=== PATIENT | male | born 1950 | race Caucasian/White ===

== ENCOUNTER → 2016-08-08 | Outpatient (CLI) | payer BC ==
[~2016-08-08] MED LIST: ATEN50TA8 PO; ATOR-26 PO; HYDR25TA4 PO; LEVO50TA PO; LISI40TA PO; LOSA100T65 PO; MONT1TAB5 PO; OXYC-57 PO; OXYSR10 PO; PRCSR90 PO; SIMV80TA2 PO
[2016-08-08 12:21] LABS: ESTIMATED AVERAGE GLUCOSE 148 mg/dl; HA1C FLAG Normal (Normal)
[2016-08-08 12:52] LABS: RATIO 13.2 mcg/mg (0-30.0)
[2016-08-08 12:57] LABS: ALT/SGPT 26 U/L (12-78); BLOOD UREA NITROGEN 17 mg/dl (7-18); BUN/CREATININE RATIO 15.4 (10-20); CARBON DIOXIDE 30 mmol/L (21-32); CHLORIDE 103 mmol/L (98-107); CHOLESTEROL 158 mg/dl (0-200); GLUCOSE 120 mg/dl (70-99); POTASSIUM 3.4 mmol/L (3.5-5.1); SODIUM 141 mmol/L (136-145); TRIGLYCERIDES 152 mg/dl (0-150); VERY LOW DENSITY LIPOPROT CALC 30 mg/dl
[2016-08-08 13:08] LABS: ALB/GLOB RATIO 1.1 (0.9-2); ALKALINE PHOSPHATASE 61 U/L (45-117); AST/SGOT 17 U/L (15-37); CHOLESTEROL/HDL RATIO 3.6; HDL CHOLESTEROL 44 mg/dl; LDL CHOLESTEROL CALCULATED 84 mg/dl
[2016-08-08 13:11] LABS: CALCIUM 10.1 mg/dl (8.5-10.1)
== END | disposition home or self-care (01) ==
LOC: C.LABBFT 10:18
PROVIDERS: ATTEND Internal Medicine
DX: E11.9 Type 2 diabetes mellitus without complications (principal)

== ENCOUNTER → 2016-10-07 | Day surgery (SDC) | payer BC, OTHER ==
[2016-09-26 11:18] VITALS: Ht 170.2 cm; Wt 127.3 kg
[~2016-10-07] VITALS: Ht 170.2 cm; Wt 127.3 kg
[~2016-10-07] MED LIST changes: +FENTANYL CITRATE INJ 50 MCG/1 ML 2 ML VIAL ONE; +LIDOCAINE HCL 2% 2 ML VIAL (20MG/ML) ONE; -LISI40TA PO; -OXYC-57 PO; -OXYSR10 PO; -PRCSR90 PO; +PROPOFOL IV EMULSION 10 MG/ML 20 ML VIAL IV ONE; -SIMV80TA2 PO
[2016-10-07 10:43] VITALS: TEMP 36.6
--- NOTE | 2016-10-07 10:47 | Endo History and Physical ---
History & Physical Date of Service: Oct 07, 2016. Chief Complaint: screening Referring Physician: Dr. Sheehan History of Present Illness 66 yo CM who presents for screening colonoscopy. Past Surgical History Hx Cardiac Surgery: No Hx Internal Defibrillator: No Hx Pacemaker: No Hx Abdominal Surgery: No Hx of Implantable Prosthesis: No Hx Post-Op Nausea and Vomiting: No Hx Cancer Surgery: No Hx Thoracic Surgery: Yes (I&D RIB BONE) Hx Orthopedic: Yes (LT/RT TKA) Hx Urinary Tract Surgery: No Family History None Social History Smoking Status: Never Smoker Hx Substance Use: No Hx Alcohol Use: No Allergies Coded Allergies: Sulfa Drugs (Verified Allergy, Mild, RASH, NAUSEA, 10/07/16) Ketorolac Tromethamine (Verified Allergy, Unknown, EXTREME ITCHING, ) Oxycodone (Verified Allergy, Unknown, UNKNOWN REACTION, 09/26/16) Current Medications Reported Home Medications Medications Dose Route/Sig Max Daily Dose Days Date Category Synthroid (Levothyroxine Sodium) 50 Mcg Tab 50 Mcg PO QAM 09/26/16 Reported Cozaar (Losartan Potassium) 100 Mg Tab 100 Mg PO QAM 09/26/16 Reported Hctz (Hydrochlorothiazide) 25 Mg Tab 25 Mg PO QAM 09/26/16 Reported Lipitor (Atorvastatin Calcium) 80 Mg Tab 80 Mg PO QAM 09/26/16 Reported Montelukast Sodium 10 Mg Tab 1 Tab PO QAM 09/26/16 Reported Tenormin (Atenolol) 50 Mg Tab 50 Mg PO QAM 10/27/09 Reported Vital Signs Weight (Kilograms): 127.27 Height (Feet): 5 Height (Inches): 7 Date Time Temp Pulse Resp B/P (MAP) Pulse Ox O2 Delivery O2 Flow Rate FiO2 10/07/16 10:43 36.6 53 20 168/87 (114) 95 Room Air Physical Exam General Appearance: WD/WN, no apparent distress Respiratory/Chest: Auscultation: breath sounds normal Cardiovascular: Heart Auscultation: RRR Abdomen: Bowel Sounds: normal Inspection & Palpation: soft, non-distended, no tenderness, guarding & rebound Assessment and Plan Assessment: 66 yo CM who presents for screening colonoscopy. Plan: Proceed with colonoscopy.
--- NOTE | 2016-10-07 11:41 | GI REPORT ---
Procedure Date: 10/07/2016 10:59 AM Procedure: Colonoscopy Indications: Screening for colorectal malignant neoplasm Medicines: Monitored Anesthesia Care Complications: No immediate complications. Estimated Blood Loss: Estimated blood loss: none. Procedure: Pre-Anesthesia Assessment: - Prior to the procedure, a History and Physical was performed, and patient medications and allergies were reviewed. The patient's tolerance of previous anesthesia was also reviewed. The risks and benefits of the procedure and the sedation options and risks were discussed with the patient. All questions were answered, and informed consent was obtained. Prior Anticoagulants: The patient has taken no previous anticoagulant or antiplatelet agents. ASA Grade Assessment: III - A patient with severe systemic disease. After reviewing the risks and benefits, the patient was deemed in satisfactory condition to undergo the procedure. After I obtained informed consent, the scope was passed under direct vision. Throughout the procedure, the patient's blood pressure, pulse, and oxygen saturations were monitored continuously. The scope was introduced through the anus and advanced to the terminal ileum. The colonoscopy was performed without difficulty. The patient tolerated the procedure well. The quality of the bowel preparation was good. The terminal ileum, ileocecal valve, appendiceal orifice, and rectum were photographed. Findings: Multiple small-mouthed diverticula were found in the sigmoid colon. Non-bleeding internal hemorrhoids were found during retroflexion. The hemorrhoids were small. Impression: - Diverticulosis in the sigmoid colon. - Non-bleeding internal hemorrhoids. - No specimens collected. Recommendation: - Resume previous diet. - Continue present medications. - Repeat colonoscopy in 10 years for surveillance. - Return to primary care physician as previously scheduled. Placido Glass, DO 10/07/2016 11:40:33 AM This report has been signed electronically. Note Initiated On: 10/07/2016 10:59 AM I attest to the content of the Intraoperative Record and orders documented therein, exceptions below
--- NOTE | 2016-10-07 11:42 | Discharge Instructions ---
Endoscopy Patient Instructions Date / Procedure(s) Performed Oct 07, 2016. Colonoscopy Allergy Information Coded Allergies: Sulfa Drugs (Verified Allergy, Mild, RASH, NAUSEA, 10/07/16) Ketorolac Tromethamine (Verified Allergy, Unknown, EXTREME ITCHING, ) Oxycodone (Verified Allergy, Unknown, UNKNOWN REACTION, 09/26/16) Discharge Date / Findings Oct 07, 2016. Diverticulosis Internal hemorrhoids Medication Instructions OK to resume all medications today as prescribed Reported Home Medications Medications Dose Route/Sig Max Daily Dose Days Date Category Synthroid (Levothyroxine Sodium) 50 Mcg Tab 50 Mcg PO QAM 09/26/16 Reported Cozaar (Losartan Potassium) 100 Mg Tab 100 Mg PO QAM 09/26/16 Reported Hctz (Hydrochlorothiazide) 25 Mg Tab 25 Mg PO QAM 09/26/16 Reported Lipitor (Atorvastatin Calcium) 80 Mg Tab 80 Mg PO QAM 09/26/16 Reported Montelukast Sodium 10 Mg Tab 1 Tab PO QAM 09/26/16 Reported Tenormin (Atenolol) 50 Mg Tab 50 Mg PO QAM 10/27/09 Reported Provider Instructions Activity Restrictions - No exercising or heavy lifting for 24 hours. - Do not drink alcohol the day of the procedure. - Do not drive a car or operate machinery until the day after the procedure. - Do not make any important decisions or sign important papers in 24 hours after the procedure. Following Day: - Return to full activity which may include returning to work/school. Diet Start your diet with liquids and light foods (jello, soup, juice, toast). Then eat your usual diet if not nauseated. Treatment For Common After Affects For mild abdominal pain, bloating, or excessive gas: - Rest - Eat lightly - Lie on right side Follow-Up Information Follow-up with Dr. Sheehan as scheduled Anesthesia Information What You Should Know You have had a procedure that required some medicine to reduce anxiety and discomfort. This treatment is called moderate sedation. After receiving the treatment, you may be sleepy, but you will be able to breathe on your own. The effects of the treatment may last for several hours. Follow these instructions along with Activity/Diet recommendations noted above: * Do NOT do anything where dizziness or clumsiness would be dangerous. * Rest quietly at home today, then you can be up and about tomorrow. * Have a responsible person stay with you the rest of today. * You may have had an I.V. today. If so, you may take the dressing off later today. Recommendations Call your doctor if: * Trouble breathing * Continuous vomiting for more than 24 hours * Temperature above 101 degrees * Severe abdominal pain or bloating * Pain not relieved by pain medicine ordered * There is increased drainage or redness from any incision * A large amount of rectal bleeding greater than 2-3 tablespoons. (If you had a polyp/s removed or have hemorrhoids, a small amount of blood - from the rectum is to be expected.) * You have any unanswered questions or concerns. IN THE EVENT OF A SERIOUS EMERGENCY, GO TO THE NEAREST EMERGENCY ROOM Your discharge instructions were prepared by provider Placido Glass. Patient Instructions Signature Page Stephane Benton Patient (or Guardian) Signature/Date: I have read and understand the instructions given to me by my caregivers. Caregiver/RN/Doctor Signature/Date: The above-named patient and/or guardian has received patient instructions on this date. + Original Patient Signature Page (only) stays with chart. Please make copy for patient.
[2016-10-07 12:06] VITALS: BP 129/73; PULSE 47; O2SAT 96
--- NOTE | 2016-10-07 12:12 | Anesthesiology Progress Note ---
Anesthesia Post Op Note Date & Time Oct 07, 2016 at 12:11 Vital Signs Pain Intensity: 0 Vital Signs Past 12 Hours Date Time Temp Pulse Resp B/P (MAP) Pulse Ox O2 Delivery O2 Flow Rate FiO2 10/07/16 12:06 47 18 129/73 (91) 96 Room Air 10/07/16 11:51 50 18 117/66 (83) 94 Room Air 10/07/16 11:35 48 16 105/62 (76) 92 Room Air 10/07/16 10:43 36.6 53 20 168/87 (114) 95 Room Air Notes Mental Status: alert / awake / arousable, participated in evaluation Pt Amnestic to Procedure: Yes Nausea / Vomiting: adequately controlled Pain: adequately controlled Airway Patency, RR, SpO2: stable & adequate BP & HR: stable & adequate Hydration State: stable & adequate Anesthetic Complications: no major complications apparent
== END | disposition home or self-care (01) ==
LOC: C.GI 10:16
PROVIDERS: ATTEND Internal Medicine
DX: Z12.11 Encounter for screening for malignant neoplasm of colon (principal); K57.30 Diverticulosis of large intestine without perforation or abscess without bleeding; K64.8 Other hemorrhoids; J45.909 Unspecified asthma, uncomplicated; G47.33 Obstructive sleep apnea (adult) (pediatric); M19.90 Unspecified osteoarthritis, unspecified site; E11.9 Type 2 diabetes mellitus without complications; E03.9 Hypothyroidism, unspecified

== ENCOUNTER 2024-01-05 05:02 | Observation (INO) ==
--- NOTE | 2023-12-13 12:08 | PAT Medication Instructions ---
Medication Instructions Date of Service December 13, 2023 Home Medications Medication Instructions Recorded CPAP Supplies #1 ea 06/10/22 atenolol 25 mg tablet 25 mg PO QAM atorvastatin 80 mg tablet 80 mg PO QAM hydrochlorothiazide 25 mg tablet 25 mg PO QAM levothyroxine 50 mcg tablet 50 mcg PO QAM losartan 100 mg tablet 100 mg PO QAM montelukast 10 mg tablet (Singulair) 10 mg PO QAM naproxen sodium 220 mg tablet (Aleve) 220 mg PO Q8H PRN triamcinolone acetonide 0.1 % topical cream 1 applic topical BID PRN ASK your surgeon for instructions naproxen sodium 220 mg tablet (Aleve) 220 mg PO Q8H PRN STOP taking 24 hours before surgery triamcinolone acetonide 0.1 % topical cream 1 applic topical BID PRN DO NOT take the morning of surgery hydrochlorothiazide 25 mg tablet 25 mg PO QAM losartan 100 mg tablet 100 mg PO QAM Take morning of surgery With a small sip of water, OTHERWISE NOTHING TO EAT OR DRINK AFTER MIDNIGHT: atenolol 25 mg tablet 25 mg PO QAM atorvastatin 80 mg tablet 80 mg PO QAM levothyroxine 50 mcg tablet 50 mcg PO QAM montelukast 10 mg tablet (Singulair) 10 mg PO QAM Other Notes If you have any questions please call us at [phone] or [phone] or [phone] or [phone]
--- NOTE | 2023-12-21 10:22 | Anesthesiology Consultation ---
Date of Service December 21, 2023 Assessment & Plan (1) Encounter for pre-operative examination: - Check BSG AM DOS - Infectious disease screening: Per assessment on 12/21/23: No known recent infectious disease contacts or current infectious disease symptoms. - Outpatient joint assessment: Pt currently scheduled for inpatient pathway. If surgeon requests review for outpatient joint pathway, patient is not recommended candidate for outpatient joint program from anesthesia standpoint based on available information. - PCP visit (12/12/23): "..He is mildly uncontrolled with Hgb A1C at 7.3%, goal adjusted for age of 7.2. Appears doing well as last year had value of 8.0%. Weight is stable. c/w Rybelsus to 7mg. Only currently on 6mg because requires 3mg sample tablets x 2.. Consider switching Losartan to Olmesartan for microalbuminuria if present. UTD with diabetic eye exam. Foot exam performed today. Follow up in 6 months.. notes requires replacement, reviewed ortho note, notes will be on 01/04. Noted he had successful weight loss on Rybelsus which will add in his post operative recovery and lessen complications.. JULIENNE (obstructive sleep apnea).. following with sleep medicine, reviewed recent note.. Sensorineural hearing loss (SNHL) of both ears.. reviewed recent Audiology and ENT report. Notes doesn't want hearing aides. Continue with current plan, notes has had allergy referral and testing in the past.. eviewed echocardiogram form 2019 which showed concentric LVH with mild diastolic dysfunction of his LV, borderline biatrial dilatation, trace aortic regurg, mild mitral regurg, trace tricuspid regurg Continue with current optimized medical management.. Upper airway cough syndrome.. c/w montelukast" Chart Review Chart Review: Acceptable Risk for Surgery and Patient seen in Pre Admission Testing Teaching & Discussion Pre-Anesthesia Teaching/Discussion Notes: Instructed NPO after midnight before surgery,except medications with 15 cc of water. Medication instructions provided according to the PAT guidelines. History Surgery Operation Date: 01/05/24 10:40 Proposed Procedures p Left Total Hip Arthroplasty - Julito Banks MD Height/Weight Height: 5 ft 6.5 in Weight: 127.6 kg Allergies Allergy/AdvReac Type Severity Reaction Status Date / Time Sulfa (Sulfonamide Allergy Mild Rash, Verified 12/21/23 10:15 Antibiotics) nausea, itchy clindamycin Allergy Unknown Redness of Verified 12/13/23 11:31 Skin ketorolac Allergy Unknown Extreme Verified 12/21/23 10:15 itching oxycodone Allergy Unknown Unknown Verified 12/21/23 10:15 Medications Home Medications Medication Instructions Recorded Confirmed Last Taken CPAP Supplies #1 ea 06/10/22 12/12/23 Unknown atenolol 25 mg tablet 25 mg PO QAM 12/13/23 12/13/23 Unknown atorvastatin 80 mg tablet 80 mg PO QAM 12/13/23 12/13/23 Unknown hydrochlorothiazide 25 mg tablet 25 mg PO QAM 12/13/23 12/13/23 Unknown levothyroxine 50 mcg tablet 50 mcg PO QAM 12/13/23 12/13/23 Unknown losartan 100 mg tablet 100 mg PO QAM 12/13/23 12/13/23 Unknown montelukast 10 mg tablet 10 mg PO QAM 12/13/23 12/13/23 Unknown (Singulair) naproxen sodium 220 mg tablet 220 mg PO Q8H PRN prn 12/13/23 12/13/23 Unknown (Aleve) triamcinolone acetonide 0.1 % 1 applic topical BID PRN prn 12/13/23 12/13/23 Unknown topical cream semaglutide 3 mg tablet PO DIRECTED 12/21/23 Unknown Past Medical History Medical History Allergic rhinitis Arthritis Diabetes mellitus, type II Eczema History of bradycardia Hypercholesterolemia Hypertension Hypothyroidism Internal hemorrhoids LVH (left ventricular hypertrophy) Morbid obesity Nocturnal hypoxemia Per records Sensorineural hearing loss (SNHL) of both ears Per records Sleep apnea CPAP (compliant) Exercise / Class Metabolic Activity III < 4 Walking/Shop/Light housework Past Family History Family History Mother Bladder cancer Coronary heart disease Diabetes Hypertension Environmental allergies Heart disease Father Coronary heart disease Stroke Progressive supranuclear palsy Heart disease Other No family history of adverse response to anesthesia No family history of bleeding disorder Denies family history of Ovarian cancer Prostate cancer Breast cancer Colorectal cancer Past Surgical History Surgical History History of anesthesia reaction Awareness of surgery during one of his knee replacements History of bilateral knee replacement History of cataract surgery R/L History of surgery Fractured rib repair History of uvulectomy S/P total knee arthroplasty Right (2010) Left (2006) Past Anesthesia History No Family Hx of Anesthesia Complications and Other (Awareness with initial knee replacement, no issue with subsequent knee replacement) History of PONV No Hx of PONV and No Hx of Motion Sickness Social History Smoking Status: Never smoker Do You Dip or Chew Tobacco: No Hx Alcohol Use: No Hx Substance Use: No substance use type: does not use Review of Systems Patient denies chest pain, shortness of breath, fever, chills, cough, wheezing, palpitations. Physical Exam Vital Signs BP 180/82 > 178/67 P 52 TEMP 98.2 SP02 96%RA RESP 16 Physical Full cervical extension range of motion. Full TMJ range of motion. TMD 3 finger breaths Mallampati Score I Dentition: missing molar Lungs: clear throughout to auscultation Cardiac: regular rate and rhythm, no murmurs noted Spine: normal Carotid arteries: negative bruit Extremities: no LE edema Thick, short neck Lab Results Anesthesia Preop Results Results Anesthesia Widget: WBC 7.58 K/ul (4.8-10.8) 12/21/23 Hgb 16.0 g/dl (14.0-18.0) 12/21/23 Hct 47.2 % (42.0-52.0) 12/21/23 Plt 206 K/uL (130-400) 12/21/23 Na 138 mmol/L (136-145) 12/04/23 K 3.6 mmol/L (3.5-5.1) 12/04/23 Cl 101 mmol/L (98-107) 12/04/23 CO2 29 mmol/L (21-32) 12/04/23 BUN 18 mg/dl (6-23) 12/04/23 Creat 0.91 mg/dl (0.6-1.4) 12/04/23 Glucose Level 122 mg/dl (70-99(Fasting)) H 12/04/23 PT 11.1 Seconds (9.0-12.0) 12/21/23 PTT 27 Seconds (21-31) 12/21/23 INR 1.0 (0.9-1.1) 12/21/23 TSH 3.359 uIu/ml (0.300-4.500) 12/04/23 HA1c 7.3 % (4.5-5.6) H 12/04/23 Blood Type O Positive 12/21/23 Antibody Screen NEGATIVE 12/21/23 Testing Electrocardiogram Date: 12/21/23 Sinus bradycardia at [address] N[address]/T wave abnormality. Chest X-Ray Date: 12/21/23 FINDINGS: No lines and tubes are seen. The cardiomediastinal silhouette is normal. The lungs are clear. No evidence of pleural effusion or pneumothorax. IMPRESSION: No acute chest disease. Echocardiogram Date: 12/02/19 EF 55-60%. Mild concentric LVH. Grade 1 diastolic dysfunction. Borderline biatrial dilatation. Mild MR. Trace TR. Normal estimated right heart pressures. No regional wall motion abnormality. Pulmonary Function Test Date: 12/13/22 Nonspecific spirometry with no significant postbronchodilator response. Normal lung volumes and normal DLCO.
[2024-01-05] MEDS: ACETAMINOPHEN 500 MG TAB PO SCH ×2 (05:40→14:13)
[2024-01-05] MEDS: FAMOTIDINE 20 MG TAB PO SCH (05:42)
[2024-01-05] MEDS: CeleBREX 200 MG CAP PO SCH (05:42)
[2024-01-05] MEDS: METOCLOPRAMIDE HCL 10 MG TABLET PO SCH (05:42)
[2024-01-05] MEDS: LR 60ML/HR IV SCH (05:45)
[2024-01-05] MEDS ORDERED: fentaNYL citrate PF 100 MCG/2 ML VIAL ONE (06:04)
[2024-01-05] MEDS ORDERED: LIDOCAINE 2% 2 ML VIAL/AMP(20MG/ML) INFIL ONE (06:04)
[2024-01-05] MEDS ORDERED: PROPOFOL IV EMULSION 10 MG/ML 20 ML VIAL IV ONE (06:04)
[2024-01-05] MEDS ORDERED: DexMEDEtomidine HCL IV 100 MCG/ML VIAL IV ONE (06:05)
[2024-01-05] MEDS ORDERED: MIDAZOLAM HCL 1 MG/ML 2ML VIAL ONE (06:05)
[2024-01-05] MEDS: LR 500ML BOLUS, THEN 15ML/HR IV SCH (06:07)
[2024-01-05] MEDS ORDERED: BUPIVACAINE 0.5 % 5 MG/1 ML PF 10ML VIAL ONE (06:22)
[2024-01-05] MEDS ORDERED: MoRPHine SULFATE PF 1 MG/ML 10 ML AMP/VIAL ONE (06:34)
--- NOTE | 2024-01-05 06:38 | History & Physical Bridge Note ---
Date of Service January 05, 2024 History & Physical Bridge Note I have examined the patient, reviewed the History & Physical and in the interval since the performance of the History & Physical I have noted the following changes of clinical significance: no changes noted
[2024-01-05] MEDS: TRANEXAMIC ACID 1,000 MG **IV Pre-op IV SCH (06:51)
[2024-01-05] MEDS: ceFAZolin 3000MG 3,000 MG/72.5 ML BAG IV SCH (07:13)
[2024-01-05] MEDS ORDERED: HYDROmorphone INJ 2 MG/ML SYR/VIAL ONE (07:33)
[2024-01-05] MEDS ORDERED: ePHEDrine sulfate 50 MG/5 ML SYR ONE (07:36)
[2024-01-05] MEDS ORDERED: ROCURONIUM BROMIDE 10 MG/ML 5 ML VIAL IV ONE (07:56)
[2024-01-05] MEDS ORDERED: SUGAMMADEX SODIUM 200 MG/2 ML VIAL IV ONE ×2 (07:58→08:27)
[2024-01-05] MEDS: BUPIVACAINE/EPINEPHRINE 0.5% MPF 1:200,000 30 ML VIAL ONE (08:26)
[2024-01-05] MEDS ORDERED: ONDANSETRON INJ 2 MG/ML 2 ML VIAL ONE (08:26)
[2024-01-05] MEDS ORDERED: DEXAMETHASONE SOD INJ 4 MG/ML VIAL ONE (08:26)
[2024-01-05] MEDS ORDERED: HYDROmorphone INJ 2 MG/ML SYR/VIAL IV PRN (08:33)
[2024-01-05] MEDS ORDERED: ePHEDrine sulfate 50 MG/ML AMP IV PRN (08:33)
[2024-01-05] MEDS ORDERED: ATROPINE SULFATE 0.1 MG/ML 10ML SYR IV PRN (08:33)
[2024-01-05] MEDS ORDERED: PROMETHAZINE HCL 6.25 MG in SODIUM CHLORIDE 0.9% 50 ML IV PRN (08:33)
--- NOTE | 2024-01-05 09:00 | Operative Report ---
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 He had a moderate-sized hip joint effusion. Not much in the way of osteophyte formation. Specimens Left femoral head sent for pathology. Anesthesia Type General Complications none Disposition Accompanied Patient To Recovery: No Indications The patient is a 73-year-old gentleman was had a several year history of increasing left hip pain discomfort and stiffness gotten significant worse over the past year. He failed conservative measures. He elected proceed with left total hip arthroplasty. Description of Procedure Operative implants consists of: 1. Biomet G7 size 52 mm acetabular shell. 2. 6.5 cancellous acetabular screws 1 of 35 mm in length and 1 of 30 mm length. 3. [place] hole loan review analyst. 4. Highly cross-linked polyethylene liner with a 52 mm outer diam and 36 mm inner diameter. 5. DePuy [place] size 11 KLA femoral stem. 6. +5/36 mm ceramic articular ball. The patient was taken to the op room, identified, placed on the operative table in the supine position. All contact areas were appropriately padded. IV antibiotics were provided by the anesthesia team. A spinal anesthetic had been attempted in the holding area but unsuccessful. Therefore, a general anesthetic was implemented. The patient was then placed in the right lateral decubitus position. An axillary roll was placed. A stool Birkett position was used for positioning. Left hip and leg were then prepped and draped in usual sterile fashion. A posterolateral approach to the left hip was then performed to a curvilinear incision centered over the greater trochanter. Sharp dissection was got through subcutaneous tissue down to level the IT band gluteal fascia. The IT band gluteal fascia was sized longitudinally in line with skin incision. The underlying greater bursa was excised. He had a lot of fat in his posterior tissue area and I did have to excise some this in order to expose the posterior aspect of his hip. The piriformis and external rotators along with the posterior hip joint capsule then released as a single layer. The hip was internally rotated and dislocated. A femoral neck osteotomy cut was made with Final Cut about 12 mm above the lesser trochanter. Femoral head was removed and sent for pathology. The femur was retracted anteriorly. Attention was then drawn to the acetabulum. The acetabular labrum was excised. The pulmonary fat was excised. Sequential reaming the acetabular was then performed again with a size 45 and progressing up to a 51. I reamed a little bit with a 52 reamer and then placed a 52 mm Biomet G7 acetabular shell in about 40 degrees lateral opening and 20 degrees of anteversion. It was fixed with two 6.5 screws. A trial liner was placed. Attention drawn the femur. The proximal femur was entered with cookie-cutter followed by canal finder. I then broached beginning with size 8 and progressing up to 11. Get excellent fit 11. A calcar reamer was used smoothing off the calcar. I then trialed the hip and the +5 articular ball provided appropriate soft tissue tension, equal leg lengths, and was fully stable in full extension and external rotation and flexion to 90 degrees and internal rotation to over [address] We elect to place these implants. All trial implants were removed. An apex hole loan review analyst was placed. Highly cross-linked polyethylene liner was placed. A size 11 KLA femoral stem was impacted in position. +5/36 mm ceramic articular ball was placed. Hip was located and found to be stable. Attention drawn toward closing. Wound was irrigated with coconuts of pulsatile lavage solution. We did inject locally with 60 cc of half percent Marcaine with epinephrine. Patient did receive 1 g tranexamic acid as well. The posterior capsule and external rotators then repaired through drill holes in the posterior trochanter with #2 Tycron suture. The IT band gluteal fascia then closed in 1 PDS suture in a running fashion for subcutaneous tissues then closed with 2 layers of the deep layer #2 Vicryl suture and the superficial layer with 2-0 Dexon suture in a buried interrupted fashion. The skin was then closed with a skin angelina. The leg was then cleaned and dried. A Prevena VAC dressing was applied. The patient was then brought out of general anesthesia and transferred to the recovery room in stable condition. The patient tolerated the procedure well and there were no complications. Casper Brenner, my physician health education assistant, was present for the entire procedure. His assistance was essential and required for appropriate patient positioning, prepping and draping, surgical exposure, performing the technical details of the operation, placement the implants, closure of the wound, and placement of the sterile bandage. I attest to the content of the Intraoperative Record and any orders documented therein. Any exceptions are noted below.
[2024-01-05] MEDS ORDERED: MAGNESIUM HYDROXIDE SUSP 30 ML UDC PO PRN (10:11)
[2024-01-05] MEDS ORDERED: bisacodyL 10 MG SUPP PR PRN (10:11)
[2024-01-05] MEDS ORDERED: HYDROmorphone INJ 0.5 MG/0.5 ML SYR IV PRN (10:11)
[2024-01-05] MEDS ORDERED: TRIAMCINOLONE ACET 0.1% CR 15 GM TUBE TOP PRN (10:11)
[2024-01-05] MEDS ORDERED: NALOXONE HCL 0.4 MG/1 ML VIAL/CARP IV PRN (10:11)
[2024-01-05] MEDS ORDERED: SENNA 8.6 MG TAB PO SCH (10:11)
[2024-01-05] MEDS ORDERED: ALUMINUM/MAGNESIUM SUSP 30 ML UDC PO PRN (10:11)
[2024-01-05] MEDS ORDERED: NON-FORMULARY MEDICATION (Cpap Supplies misc) SCH (10:11)
[2024-01-05] MEDS ORDERED: PHARMACY GLYCEMIC MGMT CONSULT PRN (10:44)
[2024-01-05] MEDS: MULTIVITAMIN TAB PO SCH (10:57)
[2024-01-05] MEDS ORDERED: DEXTROSE 50% 50 ML SYRINGE IV PRN (10:57)
[2024-01-05] MEDS ORDERED: GLUCOSE 10 TAB/TUBE PO PRN (10:57)
[2024-01-05] MEDS ORDERED: GLUCAGON FOR INJ 1 MG VIAL SQ PRN (10:57)
[2024-01-05] MEDS ORDERED: GLUCOSE 40% GEL 15 GM TUBE PO PRN (10:57)
[2024-01-05] MEDS ORDERED: CARBOHYDRATES FOR HYPOGLYCEMIA PO PRN (10:57)
[2024-01-05] MEDS: ASPIRIN 81 MG ECTAB PO SCH (10:57)
[2024-01-05] MEDS: KETOROLAC TROMETHAMINE 15 MG/ML VIAL IV SCH (11:02)
[2024-01-05] MEDS: DOCUSATE SODIUM 100 MG CAP PO SCH (11:05)
[2024-01-05] MEDS: ATORVASTATIN 40 MG TAB PO SCH (11:29)
[2024-01-05] MEDS: LEVOTHYROXINE SODIUM 50 MCG TABLET PO SCH (11:29)
[2024-01-05] MEDS: MONTELUKAST SODIUM 10 MG TABLET PO SCH (11:29)
[2024-01-05] MEDS: ATENOLOL 25 MG TABLET PO SCH (11:29)
[2024-01-05] MEDS: LOSARTAN POTASSIUM 50 MG TAB PO SCH (11:39)
[2024-01-05] MEDS: hydroCHLOROthiazide 25 MG TAB PO SCH (11:39)
--- NOTE | 2024-01-05 11:49 | Pharmacy Report ---
Pharmacy Glycemic Short Note 2 - Date of Service January 05, 2024 - Glycemic Short BSG Results (Last 24 hours): 01/05/24 01/05/24 01/05/24 05:25 09:03 11:34 POC Glucose 129 H 187 H 194 H OUTPATIENT ANTIDIABETIC REGIMEN: * N/A but per last primary care visit noted pt getting samples of Rybelsus ASSESSMENT: 01/04: * Stephane Benton is a 73 yo M POD0 of DEX. PMH includes HTN, obesity, hypothyroidism and T2DM for which pharmacy was consulted for glycemic management for. * Preop BSG was 129 but rodríguez to 187 after surgery. Pt received one dose of IV dexamethasone 4 mg and has one more 10 mg dose ordered for tomorrow * Will order Lantus to help cover steroid induced hyperglycemia and will use a NovoLog stress level of 3 to help cover that as well. PLAN FOR INPATIENT GLYCEMIC CONTROL: * Hold outpatient oral diabetes medications * Basal insulin * Lantus 25 units SQ daily x2 doses * Bolus insulin * NovoLog per scale ACHS or Q6hrs while NPO * Goal Range: Low 110 mg/dL - High 140 mg/dL * Correction Factor: 15 mg/dL/unit * Nutritional / Prandial insulin per carb ratio of 1 unit per 5 grams CHO consumed
[2024-01-05] MEDS: LANTUS PER UNIT CHARGE SC SCH (12:15)
[2024-01-05] MEDS: INSULIN ASPART PER UNIT CHARGE SC SCH (12:15)
[2024-01-05] MEDS: ONDANSETRON INJ 2 MG/ML 2 ML VIAL IV PRN (12:49)
[2024-01-05 12:54] VITALS: RESP 18
--- NOTE | 2024-01-05 13:24 | XRay Report ---
EXAM: Radiographs of the Left Hip 2 Views INDICATION: Postoperative assessment. TECHNIQUE: Single view of the pelvis and crosstable lateral views left hip obtained. COMPARISON: 10/30/2023 FINDINGS: Limitations: None. Bones/joints: Satisfactory appearance of noncemented left total hip arthroplasty. No fracture or dislocation. Satisfactory appearance of left hip arthroplasty. Soft tissues: Expected postoperative gas and swelling along the proximal femur. IMPRESSION: No acute findings in the left hip. Electronically signed by Geetha Monteiro 01-05-2024 13:23 PM
[2024-01-05] MEDS: METOCLOPRAMIDE HCL INJ 5 MG/ML 2 ML VIAL IV PRN (13:28)
--- NOTE | 2024-01-05 14:58 | Anesthesiology Progress Note ---
Date of Service January 05, 2024 Anesthesia Post Procedure Vital Signs Vital Signs: Temp Pulse Pulse Resp BP Pulse Ox O2 Del Method 01/05/24 12:50 36.2 C L 58 L 18 159/79 H 93 Room Air 01/05/24 12:09 36.3 C L 57 L 16 158/80 H 92 Room Air 01/05/24 11:00 36.2 C L 60 16 151/77 H 97 Room Air 01/05/24 10:29 59 L 18 149/75 H 92 Room Air 01/05/24 10:00 Nasal Cannula, CPAP 01/05/24 10:00 36.3 C L 60 16 156/65 H 96 Nasal Cannula 01/05/24 09:40 66 12 150/73 H 93 Nasal Cannula 01/05/24 09:30 36.4 C L 70 18 159/85 H 94 Nasal Cannula 01/05/24 09:20 66 19 164/89 H 96 Oxymask 01/05/24 09:10 60 18 146/63 H 95 Oxymask 01/05/24 09:02 36.2 C L 68 17 140/75 86 L Room Air 01/05/24 05:29 Room Air 01/05/24 05:29 36.4 C L 54 L 20 217/116 H 96 Room Air O2 Flow Rate 01/05/24 12:50 01/05/24 12:09 01/05/24 11:00 01/05/24 10:29 01/05/24 10:00 2 01/05/24 10:00 2 01/05/24 09:40 2 01/05/24 09:30 2 01/05/24 09:20 5 01/05/24 09:10 5 01/05/24 09:02 01/05/24 05:29 01/05/24 05:29 Pain Intensity Left Hip: Pain Intensity: 2 Transfer of Care Handoff Completed per policy Notes Mental Status: alert / awake / arousable and participated in evaluation Nausea / Vomiting: adequately controlled Pain: adequately controlled Airway Patency, RR, SpO2: stable & adequate BP & HR: stable & adequate Hydration State: stable & adequate Anesthetic Complications: no major complications apparent and Pt Satisfied with anesthetic care
[2024-01-05] MEDS: TRANEXAMIC ACID / 0.7% NACL 1,000 MG/100 ML BAG IV SCH (15:46)
[2024-01-05] MEDS: traMADol HCL 50 MG TABLET PO PRN (15:46)
[2024-01-05] MEDS: ceFAZolin 2000MG 2,000 MG/15 ML SYR IV SCH (15:54)
[2024-01-05] MEDS: ASCORBIC ACID 500 MG TAB PO SCH (17:14)
[2024-01-05] MEDS: CHECK SCOPOLAMINE PATCH PLACEMENT SCH (17:18)
[2024-01-05] MEDS: SCOPOLAMINE 1 MG/72 HR TDSY PATCH TD ONE (17:18)
[2024-01-05] MEDS: SENNA 8.6 MG TAB PO SCH (21:21)
[2024-01-06 06:37] LABS: Basophils # (auto) 0.03 K/uL (0.00-0.20); Basophils % (auto) 0.3 %; Eosinophils % (auto) 0.9 %; Hematocrit (blood only) 41.7 % (42.0-52.0); Hemoglobin 14.5 g/dl (14.0-18.0); Immature Granulocytes # (auto) 0.05 K/uL (0.01-0.20); Immature Granulocytes % (auto) 0.4 %; Lymphocytes # (auto) 1.99 K/uL (1.20-3.40); Lymphocytes % (auto) 17.4 %; Mean Corpuscular Hemoglobin 30.7 pg (25.0-34.0); Mean Corpuscular Hgb Conc 34.8 g/dL (32.0-36.0); Mean Corpuscular Volume 88.2 fL (80.0-100.0); Mean Platelet Volume 10.5 fL (9.4-12.4); Monocytes # (auto) 1.56 K/uL (0.11-0.59); Monocytes % (auto) 13.6 %; Neutrophils # (auto) 7.72 K/uL (1.40-6.50); Neutrophils % (auto) 67.4 %; Platelet Count 177 K/uL (130-400); RDW Coefficient of Variation 13.7 % (11.5-14.5); Red Blood Count 4.73 M/uL (4.70-6.10); White Blood Count 11.45 K/ul (4.8-10.8)
[2024-01-06 06:52] LABS: BUN Creatinine Ratio 18.8 (10-20); Creatinine Clr Calc Pharmacy 82.9 ml/min; Potassium 3.6 mmol/L (3.5-5.1)
--- NOTE | 2024-01-06 06:53 | Orthopedic Progress Note ---
Date of Service January 06, 2024 Assessment & Plan (1) Status post left hip replacement: Plan: 73-year-old gentleman postop day 1 from left hip replacement doing pretty well. Pains controlled. Hips located. He is neurologically intact. The nausea seems to be improved. Plan: 1. DVT prophylaxis including thigh-high teds, SCDs, aspirin twice a day. 2. PT/OT. Weight-bear as tolerated. Left total hip protocol. 3. Pain control. Doing okay with current pain regimen. 4. Disposition. Plan to discharge to home with some home health if he does okay in therapy today. Admission and Anticipated Discharge Date Admission Date: January 05, 2024 Subjective 73-year-old gentleman postop day 1 from a left hip replacement. He is doing quite a bit better this morning. Pains controlled. The nausea seems to be improved. No chest pain or shortness of breath. Hoping to go home today. Physical Exam Physical Exam: Physical examination reveals a pleasant middle-age male. Is lying in bed pretty comfortably this morning. Examination left hip reveals a Prevena VAC dressing to be in place. His thigh is soft and supple. Leg lengths are equal. Hips located. He is neurologically intact. Respiratory: normal respiratory effort, lungs clear to auscultation Cardiovascular: RRR, no murmur, no edema Gastrointestinal (Abdomen): normal bowel sounds, soft, nontender, no hepatosplenomegaly Results & Data Vital Signs (Past 12 Hours) Vital Signs Temp Pulse Resp BP Pulse Ox O2 Del Method 01/06/24 03:29 36.3 C L 53 L 18 159/82 H 94 Room Air 01/05/24 22:38 36.3 C L 63 18 149/77 H 93 Room Air 01/05/24 19:21 36.4 C L 61 18 163/77 H 94 Room Air Laboratory Results Hemoglobin is 14.5. Hematocrit is 41.7. Electrolytes are pending.
[2024-01-06 07:18] VITALS: BP 172/85; PULSE 61; TEMP 97.5; O2SAT 92
[2024-01-06] MEDS: dexAMETHasone 10 MG in SYRINGE 0 ML IV SCH (08:19)
--- NOTE | 2024-01-10 14:46 | Discharge Summary ---
Date of Service January 10, 2024 Principal Diagnosis Same as "Discharge Diagnosis" noted below under Discharge Instructions. Discharge Data Procedures Performed Operation Date: 01/05/24 07:00 Actual Procedures p Left Total Hip Arthroplasty(Left) - Julito Banks MD Hospital Course (1) Status post left hip replacement: This is a 73 year old patient admitted on 01/05/24 and underwent total hip arthroplasty. He tolerated the procedure well and there were no complications. Transferred to the PACU post op and later to the orthopedic floor for further care. He was given ancef for antibiotic prophylaxis. He was also given DEEDEE stockings, SCDs, and aspirin for DVT prophylaxis. Hemoglobin, hematocrit, and vital signs were monitored during her hospital stay and remained stable. Did not require any blood transfusions. There were no complications during her hospital stay. By post op day #1 the patient was tolerating a diabetic diet, pain was reasonably controlled with oral pain medicine, and he was participating in physical therapy. On post op day #1 the patient was discharged home and set up with home health care. He was given printed discharge instructions including prescriptions for extra strength tylenol, aspirin, zofran, senokot, tramadol, and flomax. Continue hip precautions. Continue physical therapy, weight bearing as tolerated. Continue DEEDEE stockings. Follow up approximately 2 weeks post op or sooner if there are problems or concerns. Discharge Plan Discharge Items Patient Disposition: Home - Home Health Services Reason For Visit: Left Hip Osteoarthritis Discharge Diagnosis: Left Hip Replacement Activity: Per Instructions section Activity Comment: Follow/Obey hip precautions at all times Weightbearing: Full weightbearing Weightbearing Comment: Weightbear as tolerated obeying hip precautions at all times. Non-emergency contact: Surgeon Call non-emergency contact if: you have any medication questions Follow-up/Referrals: Tyree Jacob DO [Primary Care Provider] - Diet: Carb Consistent or DM2 Addtl Attending Provider Instructions: ACTIVITY RECOMMENDATIONS: Diet: * You may resume previous diet. Physical Therapy: * Aggressive physical therapy is not usually needed. You will learn to take care of yourself safely and walk. * Follow the "Hip Precautions Instructions." * In some cases, the social worker delinquency prevention at the hospital will arrange to have a therapist come to your house for the first couple of weeks to help you learn these skills. * You need to practice on your own or with the help of a family member as needed. * When you learn these skills, most of the therapy can be done on your own. Home Exercise: * You were shown a series of exercises in the hospital. Do these exercises three to four times each day including the exercises you were shown in physical therapy. Walking: * Get up and walk several times each day. For the first four weeks, try not to stand or walk for more than one hour at a time. If you do stand or walk for more than one hour, you will not hurt anything, but your leg will likely swell. * As you feel comfortable, you may change from the walker or crutches to a cane and then to independent walking. MEDICATIONS: New Medicine: * You will likely be taking one or more of these medicines: 1. Tramadol - Take, as directed, when you need it, every six hours to control your pain. 2. Aspirin - Thins your blood to lessen the chance of forming a blood clot. * The most common side effects of pain medicine and iron are nausea and constipation. If nausea or constipation is too much of a problem or if you have any questions about your new medicines or doses, call [facility] at . We will try to help you manage these issues. "VERY IMPORTANT TO READ AND REVIEW" Pain: * The immediate post-operative period after hip replacement surgery is often quite painful. * You are given a prescription for pain medicine. You should take it, as directed, when you need it, especially before physical therapy and before going to bed. Pain that interferes with sleep is very common and can last several months. * You will likely need pain medicine for the first two to four weeks. It will not stop all of the pain. The pain will lessen and as you feel better, you may change to milder pain medicine such as Tylenol. * The most common side effects of pain medicine are nausea and constipation, so don't take more than you need. SPECIAL CARE INSTRUCTIONS: TEDs/Elastic Stockings: * The white elastic stockings help limit swelling and prevent blood clots from forming in your legs. The more you wear them, the more they work. * Wear them for six weeks. Incision Site Care: * Remove dressing postoperative day 2 and then shower. Keep direct shower pressure off the incision site. * After showering, cover angelina with dry gauze and change daily or more frequently if the dressing is getting saturated with drainage. * May completely stop using bandage if wound is dry and no drainage * [place] are removed between 2 and 3 weeks post-op. If your follow-up appointment is made before 2 weeks, please have your appointment re- scheduled. It is too early to remove the angelina. Prevention of Infection: * Take antibiotics one hour before any dental cleaning, dental work, urological procedure, gastrointestinal procedure or any invasive surgery in order to prevent your new joint from getting infected. * You may get the antibiotics from the doctor performing the procedure or you may call our office at before and we will call in a prescription to the pharmacy of your choice. Things to Watch For: * Drainage from the incision site that occurs more than one week after your surgery. * Severely increased leg pain or swelling. * Increased redness at the incision site. * Fever above 102 degrees Fahrenheit. * Unusual chest pain or shortness of breath. * Unusual pain or burning with urination. Call [facility] at with any of the above problems or if you have any questions about your medicines or recovery. FOLLOW UP VISIT: Make an appointment to see your doctor for approximately two weeks after surgery for a progress check and staple removal by calling the office at . 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 aspirin [Earnestine Low Dose Aspirin] 81 mg tablet,delayed release (DR/EC) 81 mg PO BID 45 Days Qty: 90 0RF Rx Instructions: Take to prevent blood clots. tamsulosin [Flomax] 0.4 mg capsule 0.4 mg PO DAILY Qty: 7 0RF Rx Instructions: Begin night BEFORE surgery to prevent urinary retention hydrochlorothiazide 25 mg tablet 25 mg PO DAILY Qty: 90 3RF atorvastatin 80 mg tablet 80 mg PO QAM atenolol 25 mg tablet 25 mg PO QAM levothyroxine 50 mcg tablet 50 mcg PO QAM montelukast [Singulair] 10 mg tablet 10 mg PO QAM losartan 100 mg tablet 100 mg PO QAM triamcinolone acetonide 0.1 % cream 1 applic topical BID PRN (Reason: prn) Rx Instructions: apply to areas of rash semaglutide 3 mg Tablet PO DIRECTED Discontinued naproxen sodium [Aleve] 220 mg Tablet 220 mg PO Q8H PRN (Reason: prn) Admission Data Admit Date/Time: 01/05/24 08:54 Attending Provider: Julito Banks Admit Provider: Julito Banks Primary Care Provider: Tyree Jacob Other Interventions: Discharge Summary Assessment (RN) Last Done: 01/06/24 12:20
== END 2024-01-06 13:34 | disposition home health service (06) ==
LOC: ASU 05:02 → 3E 05:02
DX: M16.12 Unilateral primary osteoarthritis, left hip; Z88.1 Allergy status to other antibiotic agents; Z88.2 Allergy status to sulfonamides; Z88.8 Allergy status to other drugs, medicaments and biological substances; Z79.899 Other long term (current) drug therapy; Z88.5 Allergy status to narcotic agent; I10 Essential (primary) hypertension; Z79.890 Hormone replacement therapy; E11.9 Type 2 diabetes mellitus without complications; G47.33 Obstructive sleep apnea (adult) (pediatric)

== ENCOUNTER 2024-02-23 10:10 | Inpatient (IN) ==
--- NOTE | 2024-02-23 10:54 | Emergency Department Note ---
Impression & Plan Abscess of hip ADMIT ED Provider Note HPI: History obtained from patient. The patient is a 74-year-old gentleman who presents the emergency department with some swelling and redness around the surgical incision of his left hip where he had a hip replacement performed on January [address] Darren mcgregor at [facility]. Patient states he first noticed some redness and pain around the incision site about 2 weeks ago, he was placed on a course of Keflex without much improvement. Patient states he finished the Keflex yesterday and was seen in the clinic by Dr. Banks and they recommended that he continue taking it for another 10 days secondary to lack of improvement of the erythema and discomfort. Patient came to the emergency department today to be assessed as the area does not seem to be improving. Patient still has some redness around the incision and some pain. No purulent drainage was noted. On arrival here to the ED the patient is afebrile, he is hemodynamically stable and otherwise appears to be in no acute distress. ROS: - Per HPI Differential Diagnosis: Septic prosthetic joint, localized wound infection with cellulitis, abscess, necrotizing soft tissue infection, seroma, amongst other potential pathologies. *Outpatient medications and allergy history reviewed. PE: General: Alert HEENT: Normocephalic, trachea midline Eyes: Extraocular eye movement is intact, no scleral erythema Pulmonary: Clear to auscultation bilaterally, no wheezing Cardio: Regular rate and rhythm GI: Abdomen is soft to palpation : No suprapubic tenderness MSK: No evidence of trauma or malformation of the extremities, no edema Skin: Moderate erythema surrounding the surgical wound to the left hip with some tenderness and mild fluctuance to palpation near the central portion of the wound, there is no purulent drainage, otherwise no evidence of rash Neuro: Alert, no focal deficits Psychiatric: Cooperative INDEPENDENT INTERPRETATIONS: project coordinator: (As interpreted by myself): - An order was placed for continuous cardiac monitoring - Patient was noted to be in sinus rhythm with a rate of 60 Medical Decision Making: IV was established and lab work obtained, patient was placed on supervisor jewelry department. Lab work shows no leukocytosis, hemoglobin is stable at 12.1, platelet count is 513, CMP does not show any evidence of any critical findings, x-ray imaging of the left hip shows evidence of nonspecific gas formation, I discussed the patient's presentation with his orthopedic surgeon, Dr. Banks, and he requested that CT imaging of the hip be obtained for further evaluation for possible underlying fluid collection/abscess. CT imaging of the hip was obtained with IV contrast, this does show evidence of fluid collection suspicious for abscess measuring 16 cm[address] At this time Dr[address] Banks did admit the patient for drainage of the abscess and further care. Patient was placed for admission in stable condition. Consultants/Discussions held with other healthcare providers: -Orthopedic surgery, Dr. Banks Diagnosis: 1. Abscess of the left hip, acute Disposition: Admission Alejo Ayala DO Emergency Medicine Past Med/Surg History Problem List (Updated 02/23/24 @ 15:10 by Alejo Ayala DO) Abscess of hip (Acute) Left hip postoperative wound infection Status post left hip replacement Abnormal PFT Chronic rhinitis Medical History Encounter for pre-operative examination Morbid obesity Eczema History of bradycardia Nocturnal hypoxemia Per records Sensorineural hearing loss (SNHL) of both ears Per records Hypertension Hypercholesterolemia LVH (left ventricular hypertrophy) Hypothyroidism Arthritis Allergic rhinitis Sleep apnea CPAP (compliant) Diabetes mellitus, type II Internal hemorrhoids Surgical History History of anesthesia reaction Awareness of surgery during one of his knee replacements History of cataract surgery R/L History of bilateral knee replacement History of surgery Fractured rib repair History of uvulectomy S/P total knee arthroplasty Right (2010) Left (2006) Family History Mother Bladder cancer Coronary heart disease Diabetes Hypertension Environmental allergies Heart disease Father Coronary heart disease Stroke Progressive supranuclear palsy Heart disease Other No family history of adverse response to anesthesia No family history of bleeding disorder Denies family history of Ovarian cancer Prostate cancer Breast cancer Colorectal cancer Social History Smoking Status: Never smoker Second Hand Exposure: No; Do You Dip or Chew Tobacco: No; Hx Alcohol Use: No Hx Substance Use: No Preferred Language: Samoan Communication Ability: Effective Assembler Watch Train Required: No Beliefs That Will Affect Care: None marital status: Current Living Situation: Spouse current occupational status: retired Feels Safe at Home: Yes Childhood Exposure to Second-Hand Smoke: Yes Diet: regular caffeine: Yes Dental Care, Regularly: Yes Physical Activity Frequency: Daily Physical Activity Frequency Comment: walking Seatbelt Use: always Sunscreen Use: Yes Assistive Devices: CPAP, Raised Toilet Seat and Walker Allergies Allergies Allergy/AdvReac Type Severity Reaction Status Date / Time Sulfa (Sulfonamide Allergy Mild Rash, Verified 01/05/24 05:23 Antibiotics) nausea, itchy clindamycin Allergy Unknown Redness of Verified 01/05/24 05:23 Skin ketorolac Allergy Unknown Extreme Verified 01/05/24 05:23 itching oxycodone Allergy Unknown Unknown Verified 01/05/24 05:23 Home Meds Home Medications Medication Instructions Recorded Confirmed atenolol 25 mg tablet 25 mg PO QAM 12/13/23 02/23/24 levothyroxine 50 mcg tablet 50 mcg PO QAM 12/13/23 02/23/24 losartan 100 mg tablet 100 mg PO QAM 12/13/23 02/23/24 triamcinolone acetonide 0.1 % 1 applic topical BID PRN prn 12/13/23 02/23/24 topical cream acetaminophen 500 mg tablet 1,000 mg PO TID PRN pain 02/23/24 02/23/24 (Tylenol Extra Strength) sennosides 8.6 mg tablet (Senokot) 8.6 mg PO BID PRN prevent 02/23/24 02/23/24 constipation Previous Rx's Medication Instructions Recorded CPAP Supplies #1 ea 06/10/22 tramadol 50 mg tablet 50 - 100 mg (1 - 2 x 50 mg) PO Q6 01/03/24 PRN pain #40 tabs hydrochlorothiazide 25 mg tablet 25 mg PO DAILY #90 tabs 01/04/24 atorvastatin 80 mg tablet 80 mg PO QAM #90 tabs 02/12/24 montelukast 10 mg tablet 10 mg PO QAM #90 tabs 02/12/24 (Singulair) cephalexin 500 mg capsule 500 mg PO Q6 14 days #56 caps 02/22/24 Results & Data (ED) Vital Signs Vital Signs - 24 hr 02/23/24 10:28 02/23/24 10:44 02/23/24 11:03 Temperature 36 C L Temperature Source Temporal Artery Scan Pulse Rate 66 60 Pulse Rate [Apical] 61 Pulse Rate from SpO2 Sensor Pulse Rhythm Pulse Rhythm [Apical] Regular Pulse Strength [Apical] Normal Respiratory Rate 18 18 22 Respiratory Effort / Characteristics Non-Labored Spontaneous Non-Labored Spontaneous Respiratory Depth Normal Normal Respiratory Pattern Regular Blood Pressure 156/84 H 145/78 H Blood Pressure [Left Arm] 126/73 Blood Pressure Mean 108 100 Blood Pressure Mean [Left Arm] 90 Blood Pressure Position [Left Arm] Semi-fowlers Pulse Oximetry 93 96 Oxygen Delivery Method Room Air Room Air Sepsis Recent Fever Within 48 Hours No Sepsis New/Unexplained Change in Mental Status No Sepsis Action Taken by Nursing No Action Required 02/23/24 11:22 02/23/24 11:24 02/23/24 11:33 Temperature Temperature Source Pulse Rate 58 L 58 L 56 L Pulse Rate [Apical] Pulse Rate from SpO2 Sensor 56 L Pulse Rhythm Regular Pulse Rhythm [Apical] Pulse Strength [Apical] Respiratory Rate 20 18 Respiratory Effort / Characteristics Respiratory Depth Respiratory Pattern Blood Pressure 139/78 Blood Pressure [Left Arm] Blood Pressure Mean 98 Blood Pressure Mean [Left Arm] Blood Pressure Position [Left Arm] Pulse Oximetry 96 95 Oxygen Delivery Method Room Air Room Air Sepsis Recent Fever Within 48 Hours Sepsis New/Unexplained Change in Mental Status Sepsis Action Taken by Nursing 02/23/24 12:22 02/23/24 12:24 02/23/24 13:30 Temperature Temperature Source Pulse Rate 56 L 57 L 58 L Pulse Rate [Apical] Pulse Rate from SpO2 Sensor 56 L Pulse Rhythm Pulse Rhythm [Apical] Pulse Strength [Apical] Respiratory Rate 16 20 12 Respiratory Effort / Characteristics Respiratory Depth Respiratory Pattern Blood Pressure 146/73 H 146/73 H Blood Pressure [Left Arm] Blood Pressure Mean 97 97 Blood Pressure Mean [Left Arm] Blood Pressure Position [Left Arm] Pulse Oximetry 96 96 Oxygen Delivery Method Room Air Sepsis Recent Fever Within 48 Hours Sepsis New/Unexplained Change in Mental Status Sepsis Action Taken by Nursing Laboratory Data 02/23/24 11:15 02/23/24 11:15 Lab Results 02/23/24 02/23/24 02/23/24 Range/Units 11:15 12:45 Unknown WBC 9.69 (4.8-10.8) K/ul RBC 4.06 L (4.70-6.10) M/uL Hgb 12.1 L (14.0-18.0) g/dl Hct 35.0 L (42.0-52.0) % MCV 86.2 (80.0-100.0) fL MCH 29.8 (25.0-34.0) pg MCHC 34.6 (32.0-36.0) g/dL RDW Std Deviation 40.9 (36.4-46.3) fL RDW Coeff of Carolin 13.0 (11.5-14.5) % Plt Count 513 H (130-400) K/uL MPV 9.1 L (9.4-12.4) fL Immature Gran % (Auto) 0.8 % Neut % (Auto) 62.7 % Lymph % (Auto) 21.5 % [place] % (Auto) 12.7 % Eos % (Auto) 1.8 % Baso % (Auto) 0.5 % Neut # (Auto) 6.08 (1.40-6.50) K/uL Lymph # (Auto) 2.08 (1.20-3.40) K/uL [place] # (Auto) 1.23 H (0.11-0.59) K/uL Eos # (Auto) 0.17 (0.00-0.50) K/uL Baso # (Auto) 0.05 (0.00-0.20) K/uL Immature Gran # (Auto) 0.08 (0.01-0.20) K/uL PT 11.8 (9.0-12.0) Seconds INR 1.1 (0.9-1.1) Sodium 135 L (136-145) mmol/L Potassium 3.3 L (3.5-5.1) mmol/L Chloride 101 (98-107) mmol/L Carbon Dioxide 27 (21-32) mmol/L Anion Gap 7 (3-11) BUN 17 (6-23) mg/dl Creatinine 0.97 (0.6-1.4) mg/dl Est Cr Clr Drug Dosing 83.3 ml/min eGFR 82.94 BUN/Creatinine Ratio 17.5 (10-20) Glucose 146 H (70-99(Fasting)) mg/dl Calcium 8.8 (8.6-10.3) mg/dl Total Bilirubin 0.6 (0.2-1.0) mg/dl AST 17 (13-39) U/L ALT 21 (7-52) U/L Alkaline Phosphatase 65 (34-104) U/L Total Protein 7.0 (6.0-8.3) gm/dl Albumin 3.3 L (3.4-5.0) gm/dl Globulin 3.7 (2.5-4.0) gm/dl Albumin/Globulin Ratio 0.9 (0.9-2) Urine Color Yellow Urine Appearance Clear (Clear) Urine pH 7.0 (4.5-7.5) Ur Specific [place] 1.010 (1.000-1.030) Urine Protein Negative (Negative) Urine Glucose (UA) Negative (Negative) Urine Ketones Negative (Negative) Urine Blood Negative (Negative) Urine Nitrite Negative (Negative) Urine Bilirubin Negative (Negative) Urine Urobilinogen Negative (Negative) Ur Leukocyte Esterase Negative (Negative) Fluid Comment Synovial Source Left Hip Synovial Color Red Synovial Appearance Bloody Synovial WBC (Auto) 5828 H (0-200) /ul Synovial RBC (Auto) 366073 /uL Synovial Polynuclear % 96.2 % Synovial Mononuclear % 3.8 % Administered Medications Discontinued Medications Ioversol (Optiray 320 100ml) 94 ml IV ONCE ONE Stop: 02/23/24 12:55 Last Admin: 02/23/24 12:55 Dose: 94 ml Documented By: SCOTTIE Imaging Data Radiologist's Impression: Hip X-Ray 02/23/24 11:05 XR hip LT min 2V HISTORY: 73 years-old Male pain/erythema near surgical wound acute pain and swelling of the left thigh with recent surgery COMPARISON: 01/05/2024 TECHNIQUE: 2 views of the left hip FINDINGS: Scrotal surgical clips. Left hip arthroplasty demonstrates satisfactory alignment. No acute fracture, dislocation or osseous erosion. Soft tissue swelling lateral to left hip with small amount of soft tissue gas superolaterally. IMPRESSION: 1. Satisfactory alignment of the left hip arthroplasty without acute osseous abnormality. 2. Soft tissue swelling with small amount of soft tissue gas superior lateral to the left hip. Correlate clinically to exclude infectious etiology. ACT 112: Negative or not required by law. The above report was generated using voice recognition software. It may contain grammatical, syntax or spelling errors. Electronically signed by: Kirby Harmon M.D. 02/23/2024 11:[address] 02/23/24 12:[address] WITH CONTRAST CLINICAL HISTORY: surgical wound inf, eval for underlying abscess COMPARISON STUDY: Left hip radiographs performed earlier today. Left hip radiograph January 05, 2024. TECHNIQUE: Axial images of the left hip were obtained following intravenous administration of 94 cc of Optiray 320 IV. Sagittal and coronal reformats were viewed. FINDINGS: Alignment of the total left hip arthroplasty is anatomic. No periprosthetic fracture or lucency is noted. A few small calcific/ossific densities adjacent to the femoral component of the left hip arthroplasty are present. There is a elongated rim-enhancing gas and fluid containing subincisional left thigh/posterior left hip fluid collection that measures approximately 16 x 11 x 2.3 cm. There is adjacent stranding. Associated skin thickening is also present. Collection includes a subcutaneous component overlying the left gluteus sonal which extends inferiorly along the posterior aspect of the proximal left femur. No additional fluid collections are present. Sigmoid diverticulosis is incidentally noted. IMPRESSION: Status post total left hip arthroplasty. Complex elongated rim- enhancing gas and fluid containing subincisional left thigh/posterior left hip fluid collection which measures approximately 16 x 11 x 2.3 cm , as detailed above. This is consistent with an abscess. Adjacent stranding and skin thickening consistent with associated cellulitis. ACT 112: Negative or not required by law. Electronically signed by: Last Plummer M.D. 02/23/2024 1:37 PM Discharge Plan Visit Data Chief Complaint: Infection, Wound Stated Complaint: INFECTION AT INCISION SITE, LT HIP ED Provider: Alejo Ayala Discharge Problem: Abscess of hip Prescriptions Prescriptions: No Action (DME) CPAP Supplies Misc See Rx Instructions .ROUTE .MEDSUPPLY Qty: 1 0RF Rx Instructions: NASAL MASK AND SUPPLIES DX: G47.33 Rybelsus 3 mg tablet 7 mg PO QAM 0RF tramadol 50 mg tablet 50 - 100 mg PO Q6 PRN (Reason: pain) Qty: 40 0RF Rx Instructions: Take as needed for pain hydrochlorothiazide 25 mg tablet 25 mg PO DAILY Qty: 90 3RF atorvastatin 80 mg tablet 80 mg PO QAM Qty: 90 3RF montelukast [Singulair] 10 mg tablet 10 mg PO QAM Qty: 90 3RF cephalexin 500 mg capsule 500 mg PO Q6 14 Days Qty: 56 2RF Rx Instructions: Take for infection atenolol 25 mg tablet 25 mg PO QAM levothyroxine 50 mcg tablet 50 mcg PO QAM losartan 100 mg tablet 100 mg PO QAM triamcinolone acetonide 0.1 % cream 1 applic topical BID PRN (Reason: prn) Rx Instructions: apply to areas of rash sennosides [Senokot] 8.6 mg tablet 8.6 mg PO BID PRN (Reason: prevent constipation) Rx Instructions: Take two times a day to prevent/treat constipation acetaminophen [Tylenol Extra Strength] 500 mg tablet 1,000 mg PO TID PRN (Reason: pain) Rx Instructions: Take 3 times per day to lessen pain.
[2024-02-23 11:40] LABS: Basophils # (auto) 0.05 K/uL (0.00-0.20); Basophils % (auto) 0.5 %; Eosinophils # (auto) 0.17 K/uL (0.00-0.50); Eosinophils % (auto) 1.8 %; Hemoglobin 12.1 g/dl (14.0-18.0); Immature Granulocytes # (auto) 0.08 K/uL (0.01-0.20); Immature Granulocytes % (auto) 0.8 %; Lymphocytes # (auto) 2.08 K/uL (1.20-3.40); Lymphocytes % (auto) 21.5 %; Mean Corpuscular Hemoglobin 29.8 pg (25.0-34.0); Mean Corpuscular Hgb Conc 34.6 g/dL (32.0-36.0); Mean Corpuscular Volume 86.2 fL (80.0-100.0); Mean Platelet Volume 9.1 fL (9.4-12.4); Monocytes # (auto) 1.23 K/uL (0.11-0.59); Monocytes % (auto) 12.7 %; Neutrophils # (auto) 6.08 K/uL (1.40-6.50); Neutrophils % (auto) 62.7 %; Platelet Count 513 K/uL (130-400); RDW Standard Deviation 40.9 fL (36.4-46.3); Red Blood Count 4.06 M/uL (4.70-6.10); White Blood Count 9.69 K/ul (4.8-10.8)
--- NOTE | 2024-02-23 11:56 | XRay Report ---
XR hip LT min 2V HISTORY: 73 years-old Male pain/erythema near surgical wound acute pain and swelling of the left thi gh with recent surgery COMPARISON: 01/05/2024 TECHNIQUE: 2 views of the left hip FINDINGS: Scrotal surgical clips. Left hip arthroplasty demonstrates satisfactory alignment. No acute fracture, dislocation or osseous erosion. Soft tissue swelling lateral to left hip with small amount of soft t issue gas superolaterally. IMPRESSION: 1. Satisfactory alignment of the left hip arthroplasty without acute osseous abnormality. 2. Soft tissue swelling with small amount of soft tissue gas superior lateral to the left hip. Correl ate clinically to exclude infectious etiology. ACT 112: Negative or not required by law. The above report was generated using voice recognition software. It may contain grammatical, syntax o r spelling errors. Electronically signed by: Kirby Harmon M.D. 02/23/2024 11:54 AM
[2024-02-23 11:57] LABS: Albumin Globulin Ratio 0.9 (0.9-2); Albumin Level 3.3 gm/dl (3.4-5.0); BUN Creatinine Ratio 17.5 (10-20); Bilirubin,Total 0.6 mg/dl (0.2-1.0); Calcium 8.8 mg/dl (8.6-10.3); Creatinine Clr Calc Pharmacy 83.3 ml/min; Globulin 3.7 gm/dl (2.5-4.0); Potassium 3.3 mmol/L (3.5-5.1)
[2024-02-23 12:20] LABS: INR 1.1 (0.9-1.1); Prothrombin Time 11.8 Seconds (9.0-12.0)
[2024-02-23] MEDS: OPTIRAY 320 100ml IV ONE (12:55)
--- NOTE | 2024-02-23 13:38 | CT Scan Report ---
LEFT HIP CT WITH CONTRAST CLINICAL HISTORY: surgical wound inf, eval for underlying abscess COMPARISON STUDY: Left hip radiographs performed earlier today. Left hip radiograph January 05, 2024. TECHNIQUE: Axial images of the left hip were obtained following intravenous administration of 94 cc o f Optiray 320 IV. Sagittal and coronal reformats were viewed. FINDINGS: Alignment of the total left hip arthroplasty is anatomic. No periprosthetic fracture or monica ency is noted. A few small calcific/ossific densities adjacent to the femoral component of the left h ip arthroplasty are present. There is a elongated rim-enhancing gas and fluid containing subincisiona l left thigh/posterior left hip fluid collection that measures approximately 16 x 11 x 2.3 cm. There is adjacent stranding. Associated skin thickening is also present. Collection includes a subcutaneous component overlying the left gluteus sonal which extends inferiorly along the posterior aspect of the proximal left femur. No additional fluid collections are present. Sigmoid diverticulosis is incid entally noted. IMPRESSION: Status post total left hip arthroplasty. Complex elongated rim-enhancing gas and fluid c ontaining subincisional left thigh/posterior left hip fluid collection which measures approximately 1 6 x 11 x 2.3 cm , as detailed above. This is consistent with an abscess. Adjacent stranding and skin thickening consistent with associated cellulitis. ACT 112: Negative or not required by law. Electronically signed by: Last Plummer M.D. 02/23/2024 1:37 PM
[2024-02-23 13:58] LABS: Appearance Urine Clear (Clear); Bilirubin Urine Negative (Negative); Blood Urine Negative (Negative); Color Urine Yellow; Glucose Urine UA Negative (Negative); Ketones Urine Negative (Negative); Leukocyte Esterase Urine Negative (Negative); Nitrite Urine Negative (Negative); Protein Urine Negative (Negative); Urobilinogen Urine Negative (Negative)
[2024-02-23 14:24] LABS: Appearance Synovial Fluid Bloody; Color Synovial Fluid Red; Mononuclear WBC Synovial 3.8 %; Polynuclear WBC Synovial 96.2 %; RBC Synovial Fluid Auto 304000 /uL; Source Synovial Fluid Left Hip; WBC Synovial Fluid Auto 5828 /ul (0-200)
[2024-02-23] MEDS ORDERED: NON-FORMULARY MEDICATION (Cpap Supplies misc) SCH (15:09)
[2024-02-23] MEDS ORDERED: PHARMACY GLYCEMIC MGMT CONSULT PRN (15:09)
[2024-02-23] MEDS: ACETAMINOPHEN 500 MG TAB PO PRN (15:48)
[2024-02-23] MEDS ORDERED: CARBOHYDRATES FOR HYPOGLYCEMIA PO PRN (16:00)
[2024-02-23] MEDS ORDERED: GLUCOSE 40% GEL 15 GM TUBE PO PRN (16:00)
[2024-02-23] MEDS ORDERED: GLUCAGON FOR INJ 1 MG VIAL SQ PRN (16:00)
[2024-02-23] MEDS ORDERED: DEXTROSE 50% 50 ML SYRINGE IV PRN (16:00)
[2024-02-23] MEDS ORDERED: GLUCOSE 10 TAB/TUBE PO PRN (16:00)
--- NOTE | 2024-02-23 16:07 | Hospitalist Consultation ---
Date of Consultation February 23, 2024 Assessment & Plan (1) Left hip postoperative wound infection: (2) Hypothyroidism: (3) Diabetes mellitus, type II: (4) Sleep apnea: Plan Left hip infection CTA/P: Complex elongated rim-enhancing gas and fluid collection containing subincisional fluid collection 16 x 11 x 2.3 cm consistent with abscess, adjacent stranding and skin thickening consistent with associated cellulitis Aspiration sample with markedly elevated white blood cell count. Culture pending No leukocytosis is present. Patient is afebrile and nontoxic at bedside assessment Patient is scheduled to the OR for incision and drainage and washout 02/23 Did discuss with orthopedics. We are consulted for preoperative evaluation and management of comorbidities. With respect to antibiotics would like to defer IV antibiotics until after surgical cultures are obtained. Patient is not septic on admission, will watch overnight and defer antibiotics. If clinically worsening then update orthopedic team and start Rocephin/vancomycin at that time. Preoperative risk assessment: Patient denies anginal symptoms preoperatively. No history of chest pain chest pressure CHF or ischemic cardiac disease. Has history of diabetes but no history of home insulin requirements. Last A1c 7.3%. He does not have a history of CVA/TIA. Denies tobacco/alcohol use. No history of CKD or renal disease. RCRI class I approximate 3.9% risk without modifiable risk factors at time of admission. Recommend proceeding to surgical intervention as scheduled. Reviewed last EKG. No Q waves. No ST segment changes. No territorial T wave inversions. Sinus. QRS is normal. Normal R wave progression. No acute concerns. Type II DM No history of insulin requirements Hold semaglutide SSI while inpatient, goal BSG [id number], glucose checks AC/at bedtime From [facility] and a consult is in place for assistance with management Hypertension Can continue hydrochlorothiazide Hold losartan preoperatively Continue atenolol. Do not hold this for risk of beta-davy withdrawal JULIENNE CPAP at bedtime DVT prophylaxis: Will give 1 dose of heparin subcu for DVT prophylaxis tonight, hold pharmacal prophylaxis 02/23 in anticipation of surgery. SCDs CODE STATUS: Full code Diet: N.p.o. midnight History of Present Illness Attending Physician: Julito Banks MD History of Present Illness Stephane is seen at the bedside with his family present. He reports that he had a left total hip replacement 01/04 and initially did well with improvement in his pain was ambulating well up until about 2 weeks ago. He had sudden return of pain in his left hip similar to preoperatively. This has progressively worsened and is worse on weightbearing. He has felt that he has had chills and has felt feverish although has not checked his temperature. He was on Keflex 4 times daily but did not feel that he had any improvement on this. He has had inc reased erythema and redness at his incisional site and pain at the left hip although he has not noticed any purulent drainage from this. Denies chest pressure, chest pain. No nausea vomiting or diarrhea. No numbness/tingling. No focal loss of strength although he does note it is painful to try to load weight onto his left hip and his right hip is now started to hurt from favoring this in the last 2 weeks. Mild sob with exertion but NO chest pain, no chest pressure. no history of IA or angina. +DM. No history of in[place] Medical History: Reviewed Medications: Reviewed Surgical History: Reviewed Family history: Reviewed Allergies: Reviewed. No sulfa. Hives, swelling. Social History: No tobacco, no alcohol use Code Status: Full code Allergies Allergy/AdvReac Type Severity Reaction Status Date / Time Sulfa (Sulfonamide Allergy Mild Rash, Verified 01/05/24 05:23 Antibiotics) nausea, itchy clindamycin Allergy Unknown Redness of Verified 01/05/24 05:23 Skin ketorolac Allergy Unknown Extreme Verified 01/05/24 05:23 itching oxycodone Allergy Unknown Unknown Verified 01/05/24 05:23 Home Medications Medication Instructions Recorded Confirmed Type CPAP Supplies #1 ea 06/10/22 12/12/23 Rx atenolol 25 mg tablet 25 mg PO QAM 12/13/23 02/23/24 History levothyroxine 50 mcg tablet 50 mcg PO QAM 12/13/23 02/23/24 History losartan 100 mg tablet 100 mg PO QAM 12/13/23 02/23/24 History triamcinolone acetonide 0.1 % 1 applic topical BID PRN prn 12/13/23 02/23/24 History topical cream tramadol 50 mg tablet 50 - 100 mg (1 - 2 x 50 mg) PO Q6 01/03/24 02/23/24 Rx PRN pain #40 tabs hydrochlorothiazide 25 mg tablet 25 mg PO DAILY #90 tabs 10/31/24 12/20/24 Rx atorvastatin 80 mg tablet 80 mg PO QAM #90 tabs 02/12/24 02/23/24 Rx montelukast 10 mg tablet 10 mg PO QAM #90 tabs 02/12/24 02/23/24 Rx (Singulair) cephalexin 500 mg capsule 500 mg PO Q6 14 days #56 caps 02/22/24 02/23/24 Rx acetaminophen 500 mg tablet 1,000 mg PO TID PRN pain 02/23/24 02/23/24 History (Tylenol Extra Strength) sennosides 8.6 mg tablet (Senokot) 8.6 mg PO BID PRN prevent 02/23/24 02/23/24 History constipation Patient History Medical History Encounter for pre-operative examination Morbid obesity Eczema History of bradycardia Nocturnal hypoxemia Per records Sensorineural hearing loss (SNHL) of both ears Per records Hypertension Hypercholesterolemia LVH (left ventricular hypertrophy) Hypothyroidism Arthritis Allergic rhinitis Sleep apnea CPAP (compliant) Diabetes mellitus, type II Internal hemorrhoids Surgical History History of anesthesia reaction Awareness of surgery during one of his knee replacements History of cataract surgery R/L History of bilateral knee replacement History of surgery Fractured rib repair History of uvulectomy S/P total knee arthroplasty Right (2010) Left (2006) Family History Mother Bladder cancer Coronary heart disease Diabetes Hypertension Environmental allergies Heart disease Father Coronary heart disease Stroke Progressive supranuclear palsy Heart disease Other No family history of adverse response to anesthesia No family history of bleeding disorder Denies family history of Ovarian cancer Prostate cancer Breast cancer Colorectal cancer Social History Smoking Status: Never smoker Second Hand Exposure: No; Do You Dip or Chew Tobacco: No; Hx Alcohol Use: No Hx Substance Use: No Preferred Language: Uzbek Communication Ability: Effective Membership Director Required: No Beliefs That Will Affect Care: None marital status: Current Living Situation: Spouse current occupational status: retired Feels Safe at Home: Yes Childhood Exposure to Second-Hand Smoke: Yes Diet: regular caffeine: Yes Dental Care, Regularly: Yes Physical Activity Frequency: Daily Physical Activity Frequency Comment: walking Seatbelt Use: always Sunscreen Use: Yes Assistive Devices: Cane, CPAP and Walker Physical Exam Physical Exam: General: A&Ox3. NAD. Cooperative. HEENT: Atraumatic, normocephalic. Pulm: CTAB A&P. -wheezes, -rales, -rhonchi. Symmetrical chest rise. No increased work of breathing. No respiratory distress. Cardiac: RRR, -mrg. Radial pulses intact and symmetrical. Abdominal: Nontender, nondistended, soft. BS present. Extremities: Left hip incision with erythema, slight warmth, and mild tenderness. No dehiscence or purulent drainage is noted. Ankle dorsiflexion/plantarflexion is intact, PT pulses intact bilaterally in the lower extremities. Results & Data Results & Data Vital Signs (Past 12 Hours) Vital Signs Temp Pulse Pulse Pulse Resp BP BP 02/23/24 15:14 36.6 C 58 L 16 148/78 H 02/23/24 13:30 58 L 12 02/23/24 12:24 57 L 20 146/73 H 02/23/24 12:22 56 L 16 146/73 H 02/23/24 11:33 56 L 18 139/78 02/23/24 11:24 58 L 20 02/23/24 11:22 58 L 02/23/24 11:03 60 22 145/78 H 02/23/24 10:44 61 18 126/73 02/23/24 10:28 36 C L 66 18 156/84 H Pulse Ox O2 Del Method 02/23/24 15:14 94 Room Air 02/23/24 13:30 02/23/24 12:24 96 Room Air 02/23/24 12:22 96 02/23/24 11:33 95 Room Air 02/23/24 11:24 96 Room Air 02/23/24 11:22 02/23/24 11:03 02/23/24 10:44 96 Room Air 02/23/24 10:28 93 Room Air PG Care Time/CCT Total # of Minutes Spent Total Time Spent with Patient: Total time spent is greater than 50% in coordination of care (as documented) at patient's floor/unit and/or counseling patient: Coding Level of Care Code 61818 IN/OBS CONSULT LVL 4,60M Diagnoses Left hip postoperative wound infection T81.49XA Hypothyroidism E03.9 Diabetes mellitus, type II E11.9 Sleep apnea G47.30
[2024-02-23] MEDS: INSULIN ASPART PER UNIT CHARGE SC SCH (17:13)
[2024-02-23] MEDS ORDERED: HEPARIN SOD 5,000 UNIT/0.5 ML VIAL SQ ONE (19:00)
[2024-02-23] MEDS: traMADol HCL 50 MG TABLET PO PRN (19:56)
[2024-02-23] MEDS: POTASSIUM CHLORIDE CRTAB 20 MEQ TABCR PO STA (21:24)
[2024-02-23] MEDS ORDERED: Nursing to Pharmacy Communication SCH (23:45)
[2024-02-24] MEDS: INSULIN ASPART PER UNIT CHARGE SC SCH ×2 (05:19→17:07)
[2024-02-24] MEDS: LEVOTHYROXINE SODIUM 50 MCG TABLET PO SCH (05:48)
[2024-02-24] MEDS ORDERED: PROPOFOL IV EMULSION 10 MG/ML 20 ML VIAL IV ONE (06:50)
[2024-02-24] MEDS ORDERED: LARYING-O-JET KIT (LTA) ONE (06:50)
[2024-02-24] MEDS ORDERED: LIDOCAINE 2% 2 ML VIAL/AMP(20MG/ML) INFIL ONE (06:50)
[2024-02-24] MEDS ORDERED: ROCURONIUM BROMIDE 10 MG/ML 5 ML VIAL IV ONE ×2 (06:50→08:34)
[2024-02-24] MEDS ORDERED: fentaNYL citrate PF 100 MCG/2 ML VIAL ONE (06:50)
[2024-02-24] MEDS ORDERED: ONDANSETRON INJ 2 MG/ML 2 ML VIAL ONE ×2 (06:50→09:41)
--- NOTE | 2024-02-24 07:29 | History & Physical Bridge Note ---
Date of Service February 24, 2024 History & Physical Bridge Note I have examined the patient, reviewed the History & Physical and in the interval since the performance of the History & Physical I have noted the following changes of clinical significance: no changes noted
--- NOTE | 2024-02-24 07:35 | Anesthesiology Consultation ---
Date of Service February 24, 2024 Assessment & Plan Chart Review Chart Review: Acceptable Risk for Surgery Consults Requested none History Surgery Operation Date: 02/24/24 07:30 Proposed Procedures p Left Hip Incision and Drainage - Julito Banks MD s Poly Exchange and Femoral Head, Possible Antibiotic Spacer - Julito Banks MD Height/Weight Height: 5 ft 6 in Weight: 118.3 kg Allergies Allergy/AdvReac Type Severity Reaction Status Date / Time Sulfa (Sulfonamide Allergy Mild Rash, Verified 01/05/24 05:23 Antibiotics) nausea, itchy clindamycin Allergy Unknown Redness of Verified 01/05/24 05:23 Skin ketorolac Allergy Unknown Extreme Verified 01/05/24 05:23 itching oxycodone Allergy Unknown Unknown Verified 01/05/24 05:23 Medications Home Medications Medication Instructions Recorded Confirmed Last Taken CPAP Supplies #1 ea 06/10/22 12/12/23 Unknown atenolol 25 mg tablet 25 mg PO QAM 12/13/23 02/23/24 02/23/24 levothyroxine 50 mcg tablet 50 mcg PO QAM 12/13/23 02/23/24 02/23/24 losartan 100 mg tablet 100 mg PO QAM 12/13/23 02/23/24 02/23/24 triamcinolone acetonide 0.1 % 1 applic topical BID PRN prn 12/13/23 02/23/24 Unknown topical cream tramadol 50 mg tablet 50 - 100 mg (1 - 2 x 50 mg) PO Q6 01/03/24 02/23/24 Unknown PRN pain #40 tabs hydrochlorothiazide 25 mg tablet 25 mg PO DAILY #90 tabs 01/04/24 02/23/24 02/23/24 atorvastatin 80 mg tablet 80 mg PO QAM #90 tabs 02/12/24 02/23/24 02/23/24 montelukast 10 mg tablet 10 mg PO QAM #90 tabs 02/12/24 02/23/24 02/23/24 (Singulair) cephalexin 500 mg capsule 500 mg PO Q6 14 days #56 caps 02/22/24 02/23/24 02/23/24 acetaminophen 500 mg tablet 1,000 mg PO TID PRN pain 02/23/24 02/23/24 Unknown (Tylenol Extra Strength) sennosides 8.6 mg tablet (Senokot) 8.6 mg PO BID PRN prevent 02/23/24 02/23/24 Unknown constipation Active Medications Generic Name Dose Route Start Last Admin Trade Name Magdalena PRN Reason Stop Dose Admin Acetaminophen 1,000 mg 02/23/24 15:09 02/23/24 15:48 Acetaminophen 500 Mg Tab PO 03/24/24 15:08 1,000 mg Q8H PRN Administration Pain Insulin Aspart 0 units 02/24/24 06:00 02/24/24 05:19 Insulin Aspart Per Unit Charge SC 03/25/24 05:59 Not Given Q6 ANG Levothyroxine Sodium 50 mcg 02/24/24 06:30 02/24/24 05:48 Levothyroxine Sodium 50 Mcg Tablet PO 03/25/24 06:29 50 mcg DAILYBB ANG Administration Tramadol HCl 50 - 100 mg 02/23/24 15:09 02/23/24 19:56 Tramadol Hcl 50 Mg Tablet PO 03/24/24 15:08 50 mg Q6 PRN Administration pain NPO Date Last Intake of Fluids: 02/23/24 Time Last Intake of Fluids: 23:00 Date Last Intake of Solids: 02/23/24 Time Last Intake of Solids: 22:00 Past Medical History Medical History Encounter for pre-operative examination Morbid obesity Eczema History of bradycardia Nocturnal hypoxemia Per records Sensorineural hearing loss (SNHL) of both ears Per records Hypertension Hypercholesterolemia LVH (left ventricular hypertrophy) Hypothyroidism Arthritis Allergic rhinitis Sleep apnea CPAP (compliant) Diabetes mellitus, type II Internal hemorrhoids Past Family History Family History Mother Bladder cancer Coronary heart disease Diabetes Hypertension Environmental allergies Heart disease Father Coronary heart disease Stroke Progressive supranuclear palsy Heart disease Other No family history of adverse response to anesthesia No family history of bleeding disorder Denies family history of Ovarian cancer Prostate cancer Breast cancer Colorectal cancer Past Surgical History Surgical History History of anesthesia reaction Awareness of surgery during one of his knee replacements History of cataract surgery R/L History of bilateral knee replacement History of surgery Fractured rib repair History of uvulectomy S/P total knee arthroplasty Right (2010) Left (2006) Social History Smoking Status: Never smoker Do You Dip or Chew Tobacco: No Hx Alcohol Use: No Hx Substance Use: No substance use type: does not use Physical Exam Vital Signs Last Vital Signs Temp 36.5 C 02/23/24 20:27 Pulse 67 02/23/24 20:27 Resp 16 02/23/24 20:27 BP 165/77 H 02/23/24 20:27 Pulse Ox 94 02/23/24 20:27 O2 Del Method Room Air 02/23/24 20:27 Testing Laboratory Results 02/23/24 11:15 02/23/24 11:15 PT 11.8 Seconds (9.0-12.0) 02/23/24 11:15 INR 1.1 (0.9-1.1) 02/23/24 11:15 Urine Color Yellow 02/23/24 12:45 Urine Appearance Clear (Clear) 02/23/24 12:45 Urine pH 7.0 (4.5-7.5) 02/23/24 12:45 Ur Specific [place] 1.010 (1.000-1.030) 02/23/24 12:45 Urine Protein Negative (Negative) 02/23/24 12:45 Urine Glucose (UA) Negative (Negative) 02/23/24 12:45 Urine Ketones Negative (Negative) 02/23/24 12:45 Urine Nitrite Negative (Negative) 02/23/24 12:45 Ur Leukocyte Esterase Negative (Negative) 02/23/24 12:45 Blood Type O Positive 02/23/24 15:21 Antibody Screen NEGATIVE 02/23/24 15:21 02/24/24 02/23/24 02/23/24 05:16 23:53 20:28 POC Glucose 95 96 133 H
[2024-02-24] MEDS ORDERED: ONDANSETRON INJ 2 MG/ML 2 ML VIAL IV PRN (07:36)
[2024-02-24] MEDS ORDERED: ATROPINE SULFATE 0.1 MG/ML 10ML SYR IV PRN (07:36)
[2024-02-24] MEDS ORDERED: PROMETHAZINE HCL 6.25 MG in SODIUM CHLORIDE 0.9% 50 ML IV PRN (07:36)
[2024-02-24] MEDS ORDERED: ePHEDrine sulfate 50 MG/ML AMP IV PRN (07:36)
[2024-02-24] MEDS ORDERED: HYDROmorphone INJ 2 MG/ML SYR/VIAL IV PRN (07:36)
[2024-02-24] MEDS ORDERED: TRANEXAMIC ACID / 0.7% NACL 1000MG/100ML BAG IV ONE (07:58)
[2024-02-24] MEDS: TRANEXAMIC ACID 100 MG/ML 10 ML VIAL IV ONE (08:01)
[2024-02-24] MEDS ORDERED: HYDROmorphone INJ 2 MG/ML SYR/VIAL ONE (08:02)
[2024-02-24] MEDS ORDERED: KETAMINE HCL 10MG/ML SYR ONE (08:02)
[2024-02-24] MEDS ORDERED: ePHEDrine sulfate 50 MG/ML AMP ONE (08:06)
[2024-02-24] MEDS ORDERED: SUGAMMADEX SODIUM 200 MG/2 ML VIAL IV ONE (08:17)
[2024-02-24] MEDS ORDERED: PHENYLEPHRINE HCL 10 MG/ML VIAL ONE (08:59)
[2024-02-24] MEDS: VANCOMYCIN HCL 1,750 MG in SODIUM CHLORIDE 0.9% 500 ML IV SCH (09:35)
[2024-02-24] MEDS: DAKIN'S SOLN 0.5% FULL STRENGTH 473ML BTL EXT STA (10:22)
[2024-02-24] MEDS: VANCOMYCIN HCL 1000MG/20ML VIAL ONE (10:23)
[2024-02-24] MEDS: BUPIVACAINE/EPINEPHRINE 0.5% MPF 1:200,000 30 ML VIAL ONE (10:46)
--- NOTE | 2024-02-24 11:13 | Operative Report ---
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 Implant components were well-fixed without any signs of loosening or instability. Specimens 4 total specimens were obtained. That we obtained 2 cultures from the wound shortly after incision that were in the area of the wound dehiscence of the IT band. We have sent a third sample for tissue culture and a fourth sample cultur e deep within the hip joint. Summary of cultures: 1. Fluid from hip joint 2. Fluid from hip joint 3. Tissue culture 4. Fluid culture from deep within the hip joint Anesthesia Type General Complications none Disposition Accompanied Patient To Recovery: No Indications The patient is 73-year-old gent with multiple medical comorbidities including diabetes and significant obesity who is now 7 weeks out from a left total hip replacement. He did great for the first 4 weeks and then suddenly developed increased pain discomfort and limited ability to walk. He saw him in clinic and he had a little bit of swelling around his hip nothing too marked. We put him on some antibiotics and he seemed to improve slightly for the next week or 2. He then developed more malaise and just generalized illness. He continues to have a little bit of induration and redness at the incision site. Further evaluation suggested infection. Is inflammatory parameters were elevated. We elected proceed with irrigation debridement for likely infection. Description of Procedure Operative implants consist of: 1. +5/36 mm ceramic articular ball. 2. Highly cross-linked polyethylene liner with a 52 mm outer diameter, 36 mm diameter with a walker placed inferior and posterior. The patient was taken the op room, identified, placed on the operating table in the supine position. All conductors were appropriately padded. IV antibiotics fibra anesthesia team. A general anesthetic was implemented. The patient was then placed in the right lateral decubitus position. An axillary roll was placed. A Stulberg hip positioner was used for positioning. Patient did not receive antibiotics as we are holding them until after cultures were obtained. He did get 1 g of TXA. The left hip and leg were then scrubbed and prepped in the normal sterile fashion. A posterolateral approach to the left hip was then performed through using the previous incision. Sharp dissection scalp through subcutaneous tissue down to the IT band gluteal fascia. There was a dehiscence in the mid aspect of the IT band incision site right over the trochanter. Does not there is a lot of necrotic appearing tissue in infected appearing tissue. No gross pus. We did sample 2 of these of fluid samples more superficially and then took some tissue for from deep within the wound and sent this off for culture. We opened the IT band incision up completely. I debrided the tissues in this area of all debris. We then dislocated the hip. All remaining stitches were removed. We removed the femoral head without incident. I then assessed the femoral component. I inserted the threaded extractor and could not get any movement of the implant at all. We elect to leave this. We then retracted the femur anteriorly. I removed the polyethylene liner. I examined the acetabular component component appeared also well-fixed. We then began the debridement. Extensive synovectomy was performed. I irrigated extensively. We then irr igated and scrubbed the components with full-strength Dakin solution let this sit in the wound for about 4 to 5 minutes. I then irrigated this out with 3 L of pulsatile lavage solution. I then irrigated with 500 cc of hydroperoxide. We let this sit in the wound. I also scrubbed the implants with this. Finally, I irrigated with Betadine solution. We scrubbed the implants with this as well and then left this sit in the wound for about 5 minutes. We then irrigated the wound extensively again. It looked quite clean at this point. I then placed a Betadine soaked lap sponge in the acetabulum and then closed the skin with Prolene sutures temporarily. This entire set up was then taken down. The wound area was Sterile. I then reprepped and redraped the entire left hip area again and tension was then drawn during placing the implants. The wound was then opened back up. I removed the stitches. We irrigated extensively. I then soaked this with some Betadine soaked. I then irrigated this out. I then placed a little bit of the antibiotic powder in the acetabulum and then placed the polyethylene liner with a walker placed inferior and posterior. I then irrigated the wound against again. We soaked this with a Betadine soak again. I then placed about a gram and a half of vancomycin deep within the wound. The IT band and gluteal fascia were then closed in 1 PDS suture in a combination of both running and simple stitches to make sure this was well-approximated. The subcutaneous tissue was then closed with 2 layers with a deep layer 2 oh antibiotic coated suture and the superficial layer with a 2 oh antibiotic coated Monocryl suture. The skin was closed skin angelina. A Prevena VAC dressing was applied. The patient was then placed on the transport table and brought out of general esthesia. He was transferred to the recovery room in stable condition. Patient tolerated procedure well and there were no complications. I attest to the content of the Intraoperative Record and any orders documented therein. Any exceptions are noted below.
[2024-02-24] MEDS: fentaNYL citrate PF 100 MCG/2 ML VIAL IV PRN (11:26)
--- NOTE | 2024-02-24 11:28 | XRay Report ---
EXAM: Radiographs of the Left Hip 2 Views INDICATION: Postoperative hip replacement. TECHNIQUE: AP and crosstable lateral views obtained. COMPARISON: No relevant prior studies available. FINDINGS: Limitations: None. Bones/joints: Noncemented hip arthroplasty components well-seated and intact. No fracture or dislocation. Soft tissues: Expected postoperative soft tissue gas and swelling at the operative level. IMPRESSION: Satisfactory appearance of left hip arthroplasty. ACT 112: Negative or not required by law. Electronically signed by Geetha Monteiro 02-24-2024 11:28 AM
[2024-02-24] MEDS ORDERED: TAMSULOSIN HCL 0.4 MG CAP PO PRN (12:17)
[2024-02-24] MEDS ORDERED: NALOXONE HCL 0.4 MG/1 ML VIAL/CARP IV PRN (12:17)
[2024-02-24] MEDS ORDERED: TRIAMCINOLONE ACET 0.1% CR 15 GM TUBE TOP PRN (12:17)
[2024-02-24] MEDS ORDERED: bisacodyL 10 MG SUPP PR PRN (12:17)
[2024-02-24] MEDS ORDERED: MAGNESIUM HYDROXIDE SUSP 30 ML UDC PO PRN (12:17)
[2024-02-24] MEDS ORDERED: VANCOMYCIN CONSULT ACTIVE PRN (12:17)
[2024-02-24] MEDS ORDERED: ALUMINUM/MAGNESIUM SUSP 30 ML UDC PO PRN (12:17)
[2024-02-24] MEDS ORDERED: PHARMACY GLYCEMIC MGMT CONSULT PRN (12:17)
[2024-02-24] MEDS ORDERED: SENNA 8.6 MG TAB PO PRN (12:17)
--- NOTE | 2024-02-24 12:23 | Anesthesiology Progress Note ---
Date of Service February 24, 2024 Anesthesia Post Procedure Vital Signs Vital Signs: Temp Pulse Pulse Pulse Pulse Resp BP 02/24/24 12:19 36.6 C 84 14 02/24/24 11:50 69 22 02/24/24 11:40 36.6 C 87 18 02/24/24 11:30 85 16 02/24/24 11:20 87 21 02/24/24 11:10 92 H 19 02/24/24 11:03 37.4 C 94 H 16 02/24/24 07:47 36.7 C 64 16 02/23/24 20:27 36.5 C 67 16 02/23/24 15:14 36.6 C 58 L 16 02/23/24 13:30 58 L 12 02/23/24 12:24 57 L 20 146/73 H BP BP Pulse Ox O2 Del Method O2 Flow Rate 02/24/24 12:19 155/78 H 98 Nasal Cannula 3 02/24/24 11:50 135/76 99 Nasal Cannula 3 02/24/24 11:40 133/79 93 Nasal Cannula 3 02/24/24 11:30 147/79 H 96 Oxymask 4 02/24/24 11:20 152/84 H 98 Oxymask 6 02/24/24 11:10 129/85 98 Oxymask 8 02/24/24 11:03 133/88 99 Oxymask 8 02/24/24 07:47 124/60 98 Room Air 02/23/24 20:27 165/77 H 94 Room Air 02/23/24 15:14 148/78 H 94 Room Air 02/23/24 13:30 02/23/24 12:24 96 Room Air Pain Intensity Hip: Pain Intensity: 3 Left Hip: Pain Intensity: 4 Transfer of Care Handoff Completed per policy Notes Mental Status: alert / awake / arousable and participated in evaluation Patient Amnestic to Procedure: Yes Nausea / Vomiting: adequately controlled Pain: adequately controlled Airway Patency, RR, SpO2: stable & adequate BP & HR: stable & adequate Hydration State: stable & adequate Anesthetic Complications: no major complications apparent
[2024-02-24] MEDS: KETOROLAC TROMETHAMINE 15 MG/ML VIAL IV SCH (13:17)
[2024-02-24] MEDS: ONDANSETRON INJ 2 MG/ML 2 ML VIAL IV PRN (13:17)
[2024-02-24] MEDS: METOCLOPRAMIDE HCL INJ 5 MG/ML 2 ML VIAL IV PRN (13:55)
[2024-02-24] MEDS: traMADol HCL 50 MG TABLET PO PRN (14:13)
--- NOTE | 2024-02-24 14:50 | Hospitalist Progress Note ---
Date of Service February 24, 2024 Assessment & Plan (1) Left hip postoperative wound infection: Plan: -s/p Left Hip Incision and Drainage -s/pPoly Exchange and Femoral Head exchange -care and abx as per ortho (2) Diabetes mellitus, type II: Plan: Hold semaglutide SSI while inpatient, goal BSG [id number], glucose checks AC/at bedtime From [facility] and a consult is in place for assistance with management (3) Sleep apnea: Plan: CPAP at bedtime (4) Hypertension: Plan: Can continue hydrochlorothiazide Hold losartan preoperatively Continue atenolol. Plan Admission and Anticipated Discharge Date Admission Date: February 23, 2024 Subjective Pt post op Review of Systems Review of Systems: CONST: Negative for fever, body aches and chills. HENT: Negative for neck pain/stiffness, headache, congestion, sore throat, swelling. EYES: Negative for discharge/pain or vision changes. RESP: Negative for cough/hemoptysis and shortness of breath. CV: Negative chest pain, difficulty breathing, palpitations. ABD: Negative pain, nausea, vomiting. : Negative increase frequency, dysuria, blood in urine or stool. MUSC: Negative for muscle aches, edema. Left hip pain SKIN: Negative rash, lesions/sores. NEURO: Negative headache, dizziness, weakness. Physical Exam Physical Exam: CONST: Negative for fever, body aches and chills. HENT: Negative for neck pain/stiffness, headache, congestion, sore throat, swelling. EYES: Negative for discharge/pain or vision changes. RESP: Negative for cough/hemoptysis and shortness of breath. CV: Negative chest pain, difficulty breathing, palpitations. ABD: Negative pain, nausea, vomiting. : Negative increase frequency, dysuria, blood in urine or stool. MUSC: Negative for muscle aches, edema. Left hip dressing c/d/i SKIN: Negative rash, lesions/sores. NEURO: Negative headache, dizziness, weakness. Results & Data Results & Data Vital Signs (Past 12 Hours) Vital Signs Temp Pulse Pulse Pulse Resp BP BP 02/24/24 14:16 36.3 C L 79 16 134/77 02/24/24 13:43 02/24/24 13:20 36.4 C L 79 18 142/83 H 02/24/24 12:49 36.5 C 80 18 123/73 02/24/24 12:19 36.6 C 84 14 155/78 H 02/24/24 11:50 69 22 135/76 02/24/24 11:40 36.6 C 87 18 133/79 02/24/24 11:30 85 16 147/79 H 02/24/24 11:20 87 21 152/84 H 02/24/24 11:10 92 H 19 129/85 02/24/24 11:03 37.4 C 94 H 16 133/88 02/24/24 07:47 36.7 C 64 16 124/60 Pulse Ox O2 Del Method O2 Flow Rate 02/24/24 14:16 95 Room Air 1 02/24/24 13:43 Nasal Cannula 1 02/24/24 13:20 97 Nasal Cannula 2 02/24/24 12:49 99 Nasal Cannula 3 02/24/24 12:19 98 Nasal Cannula 3 02/24/24 11:50 99 Nasal Cannula 3 02/24/24 11:40 93 Nasal Cannula 3 02/24/24 11:30 96 Oxymask 4 02/24/24 11:20 98 Oxymask 6 02/24/24 11:10 98 Oxymask 8 02/24/24 11:03 99 Oxymask 8 02/24/24 07:47 98 Room Air PG Care Time/CCT Total # of Minutes Spent Total Time Spent with Patient: Total time spent is greater than 50% in coordination of care (as documented) at patient's floor/unit and/or counseling patient: Coding Level of Care Code 01359 SUB INP/OBS CARE 2/35MIN Diagnoses Left hip postoperative wound infection T81.49XA Diabetes mellitus, type II E11.9 Sleep apnea G47.30 Hypertension I10
--- NOTE | 2024-02-24 14:58 | Pharmacy Report ---
Pharmacy PK ABX Note - Date of Service February 24, 2024 - Assessment and Plan Assessment 73 year old M receiving VANCOMYCIN/RIFAMPIN for treatment of LEFT hip infection with hardware, s/p I&D. Extensive infection per operative notes. Pertinent microbiologic data includes: OR hip cultures pending. Blood cultures negative at 24 hours. Plan Vancomycin * Loading dose: 1750 mg IV x 1 * Maintenance dose: 1250 mg IV every 12 hours * Regimen is predicted to achieve target AUC/DARREL of 400-600 mg/L.hr * Random level to be ordered 02/25 pending any renal function changes Pharmacy will continue to follow and will adjust dose/frequency as necessary. Thank you. Pharmacy has transitioned to AUC monitoring for vancomycin. AUC/DARREL is the preferred PK/PD target and is associated with decreased risk of nephrotoxicity compared to traditional trough targets.
[2024-02-24] MEDS ORDERED: PROMETHAZINE HCL 25 MG TAB PO PRN (14:59)
[2024-02-24] MEDS: HYDROmorphone INJ 0.5 MG/0.5 ML SYR IV PRN (15:10)
[2024-02-24] MEDS: MONTELUKAST SODIUM 10 MG TABLET PO SCH (16:03)
[2024-02-24] MEDS: ATORVASTATIN 40 MG TAB PO SCH (16:03)
[2024-02-24] MEDS: ATENOLOL 25 MG TABLET PO SCH (16:03)
[2024-02-24] MEDS: VANCOMYCIN HCL 1,250 MG in SODIUM CHLORIDE 0.9% 250 ML IV SCH (16:06)
[2024-02-24] MEDS: ASCORBIC ACID 500 MG TAB PO SCH (17:07)
[2024-02-24] MEDS: TRANEXAMIC ACID / 0.7% NACL 1,000 MG/100 ML BAG IV SCH (17:40)
[2024-02-24] MEDS ORDERED: VANCOMYCIN HCL 1,750 MG in SODIUM CHLORIDE 0.9% 500 ML IV SCH (21:00)
[2024-02-24] MEDS: LANTUS PER UNIT CHARGE SC SCH (21:00)
[2024-02-24] MEDS: DOCUSATE SODIUM 100 MG CAP PO SCH (21:01)
[2024-02-24] MEDS: rifAMPin 300 MG CAPSULE PO SCH (21:02)
[2024-02-24] MEDS: SENNA 8.6 MG TAB PO SCH (21:02)
[2024-02-24] MEDS: ACETAMINOPHEN 500 MG TAB PO PRN (21:09)
[2024-02-25 07:00] LABS: BUN Creatinine Ratio 14.8 (10-20); Calcium 8.2 mg/dl (8.6-10.3); Creatinine Clr Calc Pharmacy 56.9 ml/min; Potassium 3.6 mmol/L (3.5-5.1)
[2024-02-25 07:11] LABS: Basophils # (auto) 0.07 K/uL (0.00-0.20); Basophils % (auto) 0.5 %; Eosinophils # (auto) 0.21 K/uL (0.00-0.50); Eosinophils % (auto) 1.6 %; Hematocrit (blood only) 33.8 % (42.0-52.0); Immature Granulocytes # (auto) 0.07 K/uL (0.01-0.20); Immature Granulocytes % (auto) 0.5 %; Lymphocytes # (auto) 1.83 K/uL (1.20-3.40); Lymphocytes % (auto) 13.5 %; Mean Corpuscular Hemoglobin 29.5 pg (25.0-34.0); Mean Corpuscular Hgb Conc 32.5 g/dL (32.0-36.0); Mean Corpuscular Volume 90.6 fL (80.0-100.0); Mean Platelet Volume 9.3 fL (9.4-12.4); Monocytes # (auto) 1.63 K/uL (0.11-0.59); Monocytes % (auto) 12.1 %; Neutrophils # (auto) 9.71 K/uL (1.40-6.50); Neutrophils % (auto) 71.8 %; Platelet Count 445 K/uL (130-400); RDW Coefficient of Variation 13.3 % (11.5-14.5); RDW Standard Deviation 44.8 fL (36.4-46.3); Red Blood Count 3.73 M/uL (4.70-6.10); White Blood Count 13.52 K/ul (4.8-10.8)
--- NOTE | 2024-02-25 08:00 | Orthopedic Progress Note ---
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 Doing pretty well this morning. Having some muscle soreness which is to be expected. The Prevena VAC dressing is in place. Looks to be working well. Hips located. He is neurologically intact. Cultures are growing out Staph infection. Exact species and sensitivities are pending. This is likely a true organism. Plan: 1. DVT prophylaxis including thigh-high teds, SCDs, aspirin twice a day for 6 weeks. 2. PT/OT. He can fully weight-bear as tolerated. Does need to obey hip precautions. 3. Pain control doing okay with current pain regimen. 4. Antibiotic management. He is on vancomycin and rifampin. We can trim down this if it becomes a known as methicillin sensitive staph but we will have to wait for the final sensitivities. Will likely need infectious disease consult. Would appreciate medicine's assistance with this. May need his Vanco dose adjusted based on his creatinine. Pharmacy is following. New 5. IV antibiotic management. He is phylicia likely need 6 weeks of at least IV a ntibiotics. I did do a PICC line consent for him today. Will look into getting this placed. 6. Disposition. Disposition is pending all the above. Our goal will be hopefully to get him home maybe on Monday. (2) Left hip postoperative wound infection: (3) Status post left hip replacement: Admission and Anticipated Discharge Date Admission Date: February 23, 2024 Subjective 73-year-old gentleman postop day 1 from I&D and femoral head and poly exchange for infected total hip arthroplasty. He is doing pretty well this morning. Does have a lot of muscle soreness. No other complaints. No chest pain no shortness of breath. Not feeling dizzy or lightheaded. Physical Exam Physical Exam: Physical examination was a pleasant middle-age male. Lying bed looks pretty c omfortable. Examination left hip and leg reveals the Prevena VAC dressing to be in place. His thigh is soft and supple. He is neurologically intact. Hips located. Respiratory: normal respiratory effort, lungs clear to auscultation Cardiovascular: RRR, no murmur, no edema Gastrointestinal (Abdomen): normal bowel sounds, soft, nontender, no hepatosplenomegaly Results & Data Vital Signs (Past 12 Hours) Vital Signs Temp Pulse Resp BP Pulse Ox O2 Del Method 02/25/24 07:05 36.6 C 64 16 139/73 93 CPAP 02/25/24 04:06 36.4 C L 65 18 132/81 96 Room Air 02/24/24 23:58 36.8 C 65 18 136/76 94 Room Air Laboratory Results Hemoglobin 11.0. Hematocrit 33.8. Electrolytes fairly stable. Creatinine slightly elevated at 1.42 Gram stain results from the OR to date revealed less than gram-positive cocci in the tissue culture only. Definitive culture results and sensitivities are pending.
[2024-02-25] MEDS: LOSARTAN POTASSIUM 50 MG TAB PO SCH (08:32)
[2024-02-25] MEDS: hydroCHLOROthiazide 25 MG TAB PO SCH (08:32)
[2024-02-25] MEDS: MULTIVITAMIN TAB PO SCH (08:33)
--- NOTE | 2024-02-25 09:56 | Hospitalist Progress Note ---
Date of Service February 25, 2024 Assessment & Plan (1) Left hip postoperative wound infection: Plan: S/p I&D and polyethylene femoral head exchange for a periprosthetic joint infection 02/24/[address] Banks - Defer DVT prophylaxis, pain regimen, bowel regimen, activity level, dispo planning to primary ortho team - Review of operative report less EBL 200 cc, no complications noted - Acute blood loss anemia secondary to surgery. Hgb stable, no indication for blood transfusion at this time. Transfuse PRN for symptomatic anemia or Hgb <7 - Blood cultures negative x 48 hours - Operative fluid/tissue cultures preliminarily showing Staph aureus - Continue rifampin and vancomycin until sensitivities result -- synergistic combo for Staph aureus infections and prosthetic joints with hardware - Started Ceftriaxone - Pending results, consider ID consult to assist in antibiotic regimen. Consented for PICC line with ortho (2) Diabetes mellitus, type II: Plan: On semaglutide outpatient; hold while inpatient - Pharmacy glycemic consult is placed - Intolerant to metformin because of GI adverse effects. Intolerant of Jardiance because of memory issues while taking it - SSI while inpatient, goal BSG [id number], glucose checks ACHS (3) Hypertension: Plan: Blood pressure stable - Continue atenolol, hydrochlorothiazide - Continue to hold losartan at this time due to mild ZAYRA -- encourage PO hydration. Suspect can resume losartan 02/25 Plan Discussed case with pharmacy Chronic stable problems: Hypothyroidism: Continue levothyroxine Hypercholesterolemia: Continue atorvastatin JULIENNE: Continue CPAP at bedtime VTE PPx: thigh-high teds, SCDs, aspirin twice a day for 6 weeks CODE STATUS: Full code Hospital medicine will continue to follow. Please reach out with any questions or concerns. Admission and Anticipated Discharge Date Admission Date: February 23, 2024 Supervising Physician Co-Signing Physician Notes Chart reviewed, case discussed with Corwin Powell PA-C. As above Subjective Patient seen and evaluated at bedside with his daughter present. He reports feeling well overall. He has passed gas, but has not yet had a bowel movement postop. He is well tolerating his diet. He denies headache, nausea, chest pain, shortness of breath, lightheadedness. We discussed that his culture sensitivities are still pending, and once we have those we will be able to narrow down his antibiotic regimen. No additional complaints or concerns at this time. Physical Exam Physical Exam: General: No acute distress, nondiaphoretic, well-developed, well-nourished. Cardiac: Regular rate and rhythm without murmurs gallops or rubs. Pulm: Clear to auscultation bilaterally without wheezes, rales or rhonchi. No respiratory distress. 98% on room air. Abdominal: Soft, nontender, nondistended. Bowel sounds present. Neuro: A&O x3. No focal neurological deficits. Extremities: Left hip Prevena VAC dressing in place. Neurologically intact. No edema noted. Results & Data Results & Data Vital Signs (Past 12 Hours) Vital Signs Temp Pulse Resp BP Pulse Ox O2 Del Method 02/25/24 07:05 97.9 F 64 16 139/73 93 CPAP 02/25/24 04:06 97.5 F L 65 18 132/81 96 Room Air 02/24/24 23:58 98.2 F 65 18 136/76 94 Room Air Laboratory Results Reviewed CBC Reviewed BMP Reviewed blood cultures Reviewed wound cultures PG Care Time/CCT Total # of Minutes Spent Total Time Spent with Patient: Total time spent is greater than 50% in coordination of care (as documented) at patient's floor/unit and/or counseling patient: Coding Level of Care Code 41336 SUB INP/OBS CARE 3/50MIN Diagnoses Left hip postoperative wound infection T81.49XA Diabetes mellitus, type II E11.9 Hypertension I10
--- NOTE | 2024-02-25 14:04 | Pharmacy Report ---
Pharmacy PK ABX Note - Date of Service February 25, 2024 - Assessment and Plan Assessment 02/24 pin point growth on on culture- reincubating, others no growth. BC negative at 48 hours. SCr elevated from baseline today 1.42- held PM vancomcyin and got random level. Level 25.5 mcg/mL suggests 1250 mg q24H dosing. It appears patient would be therapeutic through tomorrow AM, will get random level in AM to assess since uncertain if renal function will continue to deteriorate. Re-eval by pharmacist in AM, could anticipate restarting with 1250 gm q24H if same renal function. 02/23 73 year old M receiving VANCOMYCIN/RIFAMPIN for treatment of LEFT hip infection with hardware, s/p I&D. Extensive infection per operative notes. Pertinent microbiologic data includes: OR hip cultures pending. Blood cultures negative at 24 hours. Plan Vancomycin * Loading dose: 1750 mg IV x 1 * Maintenance dose: 1250 mg IV every 12 hours- HELD * Regimen is predicted to achieve ABOVE target AUC/DARREL of 400-600 mg/L.hr * Random level 02/25 with AM labs- further dosing pending review of renal function Pharmacy will continue to follow and will adjust dose/frequency as necessary. Thank you. Pharmacy has transitioned to AUC monitoring for vancomycin. AUC/DARREL is the pre ferred PK/PD target and is associated with decreased risk of nephrotoxicity compared to traditional trough targets.
--- NOTE | 2024-02-25 15:22 | Pharmacy Report ---
Pharmacy Glycemic Short Note 2 - Date of Service February 25, 2024 - Glycemic Short BSG Results (Last 24 hours): 02/24/24 02/24/24 02/25/24 16:42 19:38 06:03 Glucose 125 H POC Glucose 140 H 156 H 02/25/24 02/25/24 07:08 11:13 Glucose POC Glucose 127 H 118 H OUTPATIENT ANTIDIABETIC REGIMEN: * Semaglutide * A1c = 7.3% ASSESSMENT: * Stephane is a 73 yo with h/o T2DM admitted with suspected L hip post-operative infection s/p I&D and polyethylene femoral head exchange on 02/24/24. * Patient was initiated on conservative doses of basal + bolus insulin post surgery. BSG consistently at/near goal range. * Fasting BSG of 127 mg/dL this morning. Will continue Lantus dose per scale. * Will slightly loosen Novolog carb coverage based BSG trending down at lunchtime. PLAN FOR INPATIENT GLYCEMIC CONTROL: * Hold outpatient oral diabetes medications * Basal insulin * Lantus 0-10 units SQ HS (10 units for BSG 150 mg/dL or more) * Bolus insulin * NovoLog per scale ACHS or Q6hrs while NPO * Goal Range: Low 110 mg/dL - High 140 mg/dL * Correction Factor: 25 mg/dL/unit * Nutritional / Prandial insulin per carb ratio of 1 unit per 9 grams CHO consumed
[2024-02-25] MEDS: cefTRIAXone SODIUM 2,000 MG/50 ML BAG IV SCH (15:51)
[2024-02-26 05:51] LABS: Hematocrit (blood only) 30.1 % (42.0-52.0); Hemoglobin 10.2 g/dl (14.0-18.0); Mean Corpuscular Hemoglobin 29.7 pg (25.0-34.0); Mean Corpuscular Hgb Conc 33.9 g/dL (32.0-36.0); Mean Corpuscular Volume 87.8 fL (80.0-100.0); Mean Platelet Volume 9.1 fL (9.4-12.4); Platelet Count 419 K/uL (130-400); RDW Coefficient of Variation 13.2 % (11.5-14.5); RDW Standard Deviation 42.9 fL (36.4-46.3); Red Blood Count 3.43 M/uL (4.70-6.10); White Blood Count 10.84 K/ul (4.8-10.8)
[2024-02-26 06:10] LABS: BUN Creatinine Ratio 15.3 (10-20); Calcium 8.4 mg/dl (8.6-10.3); Creatinine Clr Calc Pharmacy 56.1 ml/min; Potassium 3.4 mmol/L (3.5-5.1)
--- NOTE | 2024-02-26 08:28 | Hospitalist Progress Note ---
Date of Service February 26, 2024 Assessment & Plan (1) Left hip postoperative wound infection: Plan: S/p I&D and polyethylene femoral head exchange for a periprosthetic joint infection 02/24/[address] Banks - Defer DVT prophylaxis, pain regimen, bowel regimen, activity level, dispo planning to primary ortho team - Review of operative report less EBL 200 cc, no complications noted - Acute blood loss anemia secondary to surgery. Hgb stable, no indication for blood transfusion at this time. Transfuse PRN for symptomatic anemia or Hgb <7 - Blood cultures negative > 48 hours - Intraoperative cultures preliminarily growing rare Staph aureus and staph epi, sensitivities pending - Continue rifampin and vancomycin until sensitivities result -- synergistic combo for Staph aureus infections and prosthetic joints with hardware - Continue Ceftriaxone - ID consulted to assist in antibiotic regimen. Consented for PICC line with ortho (2) ZAYRA (acute kidney injury): Plan: Baseline creatinine around 1.0, with current Cr=1.44 - Losartan and HCTZ placed on HOLD - Rifampin can also cause ZAYRA, but given its need in this scenario, recommending continuing it - Encourage PO hydration - Monitor BMP in AM (3) Hypertension: Plan: Blood pressure stable - Continue atenolol - HOLD losartan, hydrochlorothiazide (4) Diabetes mellitus, type II: Plan: On semaglutide outpatient; hold while inpatient - Pharmacy glycemic consult is placed - Intolerant to metformin because of GI adverse effects. Intolerant of Jardiance because of memory issues while taking it - SSI while inpatient, goal BSG [id number], glucose checks ACHS Plan Updated daughter in person Held losartan, HCTZ Started probiotic Repleted potassium Chronic stable problems: Hypothyroidism: Continue levothyroxine Hypercholesterolemia: Continue atorvastatin JULIENNE: Continue CPAP at bedtime VTE PPx: thigh-high teds, SCDs, aspirin twice a day for 6 weeks CODE STATUS: Full code Hospital medicine will continue to follow. Please reach out with any questions or concerns. Admission and Anticipated Discharge Date Admission Date: February 23, 2024 Subjective Patient seen and evaluated at bedside. He reports feeling well and is anxious to get home for the holidays. He had his tele-visit with ID today and reports his culture sensitivities need to finalize prior to being discharged home. He had a PICC line placed yesterday. He reports it is starting to be easier getting out of bed. He denies shortness of breath, chest pain, nausea, headache, or dizziness. We discussed that he has an ZAYRA and two of his medicines are on hold now. Encouraged patient to drink plenty of fluids. No additional complaints or concerns at this time. Physical Exam Physical Exam: General: No acute distress, nondiaphoretic, well-developed, well-nourished. Cardiac: Regular rate and rhythm without murmurs gallops or rubs. Pulm: Clear to auscultation bilaterally without wheezes, rales or rhonchi. No respiratory distress. 95% on room air. Abdominal: Soft, nontender, nondistended. Bowel sounds present. Neuro: A&O x3. No focal neurological deficits. Extremities: Left hip Prevena VAC dressing in place. Neurologically intact. No edema noted. Results & Data Results & Data Vital Signs (Past 12 Hours) Vital Signs Temp Pulse Resp BP Pulse Ox O2 Del Method 02/26/24 07:25 98.2 F 73 16 146/67 H 95 Room Air Laboratory Results Reviewed CBC Reviewed BMP Reviewed blood and wound cultures PG Care Time/CCT Total # of Minutes Spent Total Time Spent with Patient: Total time spent is greater than 50% in coordination of care (as documented) at patient's floor/unit and/or counseling patient: Coding Level of Care Code 34643 SUB INP/OBS CARE 3/50MIN Diagnoses Left hip postoperative wound infection T81.49XA ZAYRA (acute kidney injury) N17.9 Hypertension I10 Diabetes mellitus, type II E11.9
--- NOTE | 2024-02-26 08:32 | Pharmacy Report ---
Pharmacy PK ABX Note - Date of Service February 26, 2024 - Assessment and Plan Assessment 02/25 * Vancomycin level drawn this morning was 15.2mcg/ml. The vancomycin has been changed to 1500mg iv q 24 hours. This is predicted to achieve an AUC24 of between 500 and 600 which ideal for the prosthetic joint infection. * SCr still elevated from base line (SCr 1.44 today) so will monitor closely and will adjust vancomycin further if needed. * POD #3 I&D and polyethylene femoral head exchange for periprosthetic joint infection. -Left hip culture from 02/22 grew S. Aureus (sensitivities pending) -Left hip cultures from 02/23 and blood cultures x 2 negative to date. * Patient continues on ceftriaxone (day #2) and rifampin (day #3) as well. 02/24 pin point growth on on culture- reincubating, others no growth. BC negative at 48 hours. SCr elevated from baseline today 1.42- held PM vancomcyin and got random level. Level 25.5 mcg/mL suggests 1250 mg q24H dosing. It appears patient would be therapeutic through tomorrow AM, will get random level in AM to assess since uncertain if renal function will continue to deteriorate. Re-eval by pharmacist in AM, could anticipate restarting with 1250 gm q24H if same renal function. 02/23 73 year old M receiving VANCOMYCIN/RIFAMPIN for treatment of LEFT hip infection with hardware, s/p I&D. Extensive infection per operative notes. Pertinent microbiologic data includes: OR hip cultures pending. Blood cultures negative at 24 hours. Plan Vancomycin * Based on level obtained this morning. Vancomycin has been changed to 1500mg iv q 24 hours. * Regimen is predicted to achieve target AUC/DARREL of 400-600 mg/L.hr * Another vanco level will be ordered within the next 72 hours, or sooner clinically indicated. Pharmacy will continue to follow and will adjust dose/frequency as necessary. Thank you. Pharmacy has transitioned to AUC monitoring for vancomycin. AUC/DARREL is the preferred PK/PD target and is associated with decreased risk of nephrotoxicity compared to traditional trough targets.
[2024-02-26] MEDS: VANCOMYCIN HCL 1,500 MG in SODIUM CHLORIDE 0.9% 500 ML IV SCH (08:57)
--- NOTE | 2024-02-26 11:21 | Orthopedic Progress Note ---
Date of Service February 26, 2024 Assessment & Plan (1) Infection of left prosthetic hip joint: Plan: 73-year-old gentleman now little over 7 weeks out from a total hip replacement complicated by periprosthetic joint infection. He is 2 days out from irrigation debridement, femoral head exchange and polyethylene exchange. He is doing pretty well. Pains controlled. Days feeling better. We just got a wait for the sensitivities to make sure he is on the right antibiotics. Creatinine slightly elevated and what to follow this medicine is assisting. ID consult in place. Plan: At this point we will continue with the IV vancomycin until the sensitivities are back. Will continue with rifampin and he will need that long- term 300 mg twice a day. Continue the wound VAC management for 7 days. He is got a PICC line in place. Will plan on DVT prophylaxis including thigh-high teds, SCDs, aspirin twice a day. (2) Left hip postoperative wound infection: (3) Status post left hip replacement: (4) ZAYRA (acute kidney injury): Admission and Anticipated Discharge Date Admission Date: February 23, 2024 Subjective 73-year-old gentleman now postop day 2 from irrigation debridement and polyethylene and femoral head exchange for infected total hip arthroplasty. He is doing better. He is having some soreness which seems to be getting better. He feels better in general. No chest pain or shortness of breath. Not feeling dizzy or lightheaded. He is hoping to get home before Josefina. Physical Exam Physical Exam: Physical nation was a pleasant middle-age male. Sitting up in his bedside chair looks pretty comfortable. He looks well. Examination of the hip reveals the Prevena VAC dressing to be in place. His thigh is soft and supple. Leg lengths are equal. Hips located. He is neurologically intact. Results & Data Vital Signs (Past 12 Hours) Vital Signs Temp Pulse Resp BP Pulse Ox O2 Del Method 02/26/24 08:28 Room Air 02/26/24 07:25 36.8 C 73 16 146/67 H 95 Room Air Laboratory Results White blood cell count is 10.84. Hemoglobin is 10.2. Hematocrit is 30.1. Potassium slightly low at 3.4. Creatinine stable but the slightly elevated. Diagnostic Findings Culture results are showing some staph infection. Exact species and sensitivities are pending.
--- NOTE | 2024-02-26 11:32 | Infectious Disease Consult ---
Date of Consultation February 26, 2024 Assessment & Plan (1) Infection of left prosthetic hip joint: (2) Abscess of hip: (3) Left hip postoperative wound infection: Plan This is a 73-year-old man with pmh JULIENNE, DM2 who underwent left hip total replacement on 01/05/2024. Immediately after the procedure he did well and was working with physical therapy . About 3 weeks ago af , he noted some increased drainage from the incision and pain increasing pain with ambulation. He then de veloped some erythema at the incision site . He was evaluated by orthopedics and completed a course of Keflex with some improvement but continued erythema around the incision induration around the distal aspects of the incision. He also complained of chills with sweats but no fevers. On 02/21,he was reevaluated by orthopedics and continued to have erythema and induration at the incision site. He was asked to get lab work and was prescribed another course of Keflex. He was subsequently referred to the ED on 02/23/24 for further evaluation and management. In the ED, he was afebrile, pulse 66, blood pressure 156/84, 96% on room air. Labs: WBC 9.69--> 13.52, platelets 513, BUN 17, creatinine 0.97 CRP 9.94. Left hip x-ray shows satisfactory alignment of the left hip arthroplasty without acute osseous abnormality; soft tissue swelling and small amount of soft tissue gas superior lateral to the left hip. A Left hip CAT scan demonstrated complex elongated rim-enhancing gas and fluid containing subincisional left thigh/posterior left hip fluid collection approximately 16 x 11 x 2.3 cm consistent with abscess. There is adjacent stranding and skin thickening consistent with cellulitis. On 02/24/24, he underwent left hip incision and drainage with poly exchange and femoral head exchange with orthopedics (Dr. Bansk). Per op report, he had extensive infection throughout the entire hip joint with a small area of dehiscence of the IT band repair. The implant components were well-fixed without any signs of loosening or instability. Four intraop cultures were obtained. 2 fluid cultures from the hip joint, 1 tissue culture and 1 fluid culture from deep within the hip joint. Intraoperative cultures growing rare Staph aureus and staph epi so far pending susceptibilities. He is receiving vancomycin, ceftriaxone and oral rifampin. Infectious disease consulted for hip abscess. On my initial exam he is In no acute distress. A PICC line is in place. He has decreased pain at the hip site since surgery. Microbiology Blood culture 02/22 NGTD Wound culture ( non OR) 02/22 Rare Staph aureus (prelim) OR culture (left hip #1) 02/23 NGTD OR culture (left hip #2) 02/23 NGTD OR culture (left hip tissue) 02/23 rare GPC on Gram stain: Rare Staph aureus and rare staph epi (prelim) OR culture (deep hip) 02/23 NGTD Antibiotics Ceftriaxone 02/24ongoing Vancomycin 02/23ongoing Rifampin 02/23ongoing # Left hip PJI # Left hip abscess and cellulitis # Leukocytosis, improving # TMP/Sulfa and Clindamycin allergy. Discussion: He presents with PJI of the left hip. He is status post washout and poly exchange. Hardware remains. Intraoperative cultures so far growing Staph aureus and staph epi pending sensitivity. Leukocytosis improving. Recommendations: Discontinued ceftriaxone Continue vancomycin per pharmacy protocol pending Staph aureus sensitivities. If MSSA, will change to cefazolin 2 g IV every 8 hours. If MRSA, will switch to daptomycin 10 mg/kg IV daily. Continue rifampin 300 mg p.o. twice daily (pending SA sensitivity) Follow-up Staph aureus and staph epi sensitivity. Unclear if staph epi is a pathogen her also. Follow-up blood cultures Anticipate 6 Weeks of IV antibiotics and rifampin p.o.( if susceptible) followed by oral antibiotic suppression for Staph aureus +/- rifampin (depending on if rifampin susceptible). On antibiotic therapy will need weekly CBC with differential, CMP, ESR, CRP. Thank you for this consult. ID will continue to follow Rowena Muñoz MD, MPH Infectious Disease [facility], [facility] Call [phone] with questions Consultation Information Consultation was provided via telemedicine using two-way real-time interactive telecommunication between the patient and the telemedicine provider. For the duration of the visit, the provider was performing the assessment from a different facility than the patient. This includesuse of bluetooth stethoscope forauscultationperformed by the telepresenter that the telemedicine provider can hear if described in the physical exam. Section Leader contact information: Please call [facility] Call Center . (Phone Number For Physician Use Only) After establishing a telemedicine visit, patient was: Patient was verified with two unique identifiers Time Spent with Patient: Initial => 75 min History of Present Illness Reason for Consultation: Hip abscess Requesting Physician: Baldemar Rome Attending Physician: Julito Banks MD History of Present Illness This is a 73-year-old man with pmh JULIENNE, DM2 who underwent left hip total replacement on 01/05/2024. Immediately after the procedure he did well and was working with physical therapy . About 3 weeks ago af , he noted some increased drainage from the incision and pain increasing pain with ambulation. He then developed some erythema at the incision site . He was evaluated by orthopedics and completed a course of Keflex with some improvement but continued erythema around the incision induration around the distal aspects of the incision. He also complained of chills with sweats but no fevers. On 02/21,he was reevaluated by orthopedics and continued to have erythema and induration at the incision site. He was asked to get lab work and was prescribed another course of Keflex. He was subsequently referred to the ED on 02/23/24 for further evaluation and management. In the ED, he was afebrile, pulse 66, blood pressure 156/84, 96% on room air. Labs: WBC 9.69--> 13.52, platelets 513, BUN 17, creatinine 0.97 CRP 9.94. Left hip x-ray shows satisfactory alignment of the left hip arthroplasty without acu te osseous abnormality; soft tissue swelling and small amount of soft tissue gas superior lateral to the left hip. A Left hip CAT scan demonstrated complex elongated rim-enhancing gas and fluid containing subincisional left thigh/posterior left hip fluid collection approximately 16 x 11 x 2.3 cm consistent with abscess. There is adjacent stranding and skin thickening consistent with cellulitis. On 02/24/24, he underwent left hip incision and drainage with poly exchange and femoral head exchange with orthopedics (Dr. Banks). Per op report, he had extensive infection throughout the entire hip joint with a small area of dehiscence of the IT band repair. The implant components were well-fixed without any signs of loosening or instability. Four intraop cultures were obtained. 2 fluid cultures from the hip joint, 1 tissue culture and 1 fluid culture from deep within the hip joint. Intraoperative cultures growing rare Staph aureus and staph epi so far pending susceptibilities. He is receiving vancomycin, ceftriaxone and oral rifampin. Infectious disease consulted for hip abscess. On my initial exam he is In no acute distress. A PICC line is in place. He has decreased pain at the hip site since surgery. Allergies Allergy/AdvReac Type Severity Reaction Status Date / Time Sulfa (Sulfonamide Allergy Mild Rash, Verified 01/05/24 05:23 Antibiotics) nausea, itchy clindamycin Allergy Unknown Redness of Verified 01/05/24 05:23 Skin ketorolac Allergy Unknown Extreme Verified 01/05/24 05:23 itching oxycodone Allergy Unknown Unknown Verified 01/05/24 05:23 Home Medications Medication Instructions Recorded Confirmed Type CPAP Supplies #1 ea 06/10/22 12/12/23 Rx atenolol 25 mg tablet 25 mg PO QAM 12/13/23 02/23/24 History levothyroxine 50 mcg tablet 50 mcg PO QAM 12/13/23 02/23/24 History losartan 100 mg tablet 100 mg PO QAM 12/13/23 02/23/24 History triamcinolone acetonide 0.1 % 1 applic topical BID PRN prn 12/13/23 02/23/24 History topical cream tramadol 50 mg tablet 50 - 100 mg (1 - 2 x 50 mg) PO Q6 01/03/24 02/23/24 Rx PRN pain #40 tabs hydrochlorothiazide 25 mg tablet 25 mg PO DAILY #90 tabs 01/04/24 02/23/24 Rx atorvastatin 80 mg tablet 80 mg PO QAM #90 tabs 02/12/24 02/23/24 Rx montelukast 10 mg tablet 10 mg PO QAM #90 tabs 02/12/24 02/23/24 Rx (Singulair) cephalexin 500 mg capsule 500 mg PO Q6 14 days #56 caps 02/22/24 02/23/24 Rx acetaminophen 500 mg tablet 1,000 mg PO TID PRN pain 02/23/24 02/23/24 History (Tylenol Extra Strength) sennosides 8.6 mg tablet (Senokot) 8.6 mg PO BID PRN prevent 02/23/24 02/23/24 History constipation Patient History Medical History Encounter for pre-operative examination Morbid obesity Eczema History of bradycardia Nocturnal hypoxemia Per records Sensorineural hearing loss (SNHL) of both ears Per records Hypertension Hypercholesterolemia LVH (left ventricular hypertrophy) Hypothyroidism Arthritis Allergic rhinitis Sleep apnea CPAP (compliant) Diabetes mellitus, type II Internal hemorrhoids Surgical History History of anesthesia reaction Awareness of surgery during one of his knee replacements History of cataract surgery R/L History of bilateral knee replacement History of surgery Fractured rib repair History of uvulectomy S/P total knee arthroplasty Right (2010) Left (2006) Family History Mother Bladder cancer Coronary heart disease Diabetes Hypertension Environmental allergies Heart disease Father Coronary heart disease Stroke Progressive supranuclear palsy Heart disease Other No family history of adverse response to anesthesia No family history of bleeding disorder Denies family history of Ovarian cancer Prostate cancer Breast cancer Colorectal cancer Social History Smoking Status: Never smoker Second Hand Exposure: No; Do You Dip or Chew Tobacco: No; Hx Alcohol Use: No Hx Substance Use: No Preferred Language: Romansh Communication Ability: Effective Supervisor Stone Required: No Beliefs That Will Affect Care: None marital status: Current Living Situation: Spouse current occupational status: retired Feels Safe at Home: Yes Childhood Exposure to Second-Hand Smoke: Yes Diet: regular caffeine: Yes Dental Care, Regularly: Yes Physical Activity Frequency: Daily Physical Activity Frequency Comment: walking Seatbelt Use: always Sunscreen Use: Yes Assistive Devices: Cane, CPAP and Walker Review of System A 10 point ROS obtained. Pertinent positives as per HPI. Physical Exam Physical Exam: NAD Supple neck Soft, not tendern abdomen Non labored breathing BL LE edema. R hip wound vac draining bloody fluid AAO times 4 Cooperative, normal mood Results & Data Vital Signs (Past 12 Hours) Vital Signs Temp Pulse Resp BP Pulse Ox O2 Del Method 02/26/24 08:28 Room Air 02/26/24 07:25 36.8 C 73 16 146/67 H 95 Room Air Laboratory Results Laboratory Results - last 48 hr 02/24/24 02/24/24 02/24/24 12:37 16:42 19:38 WBC RBC Hgb Hct MCV MCH MCHC RDW Std Deviation RDW Coeff of Carolin Plt Count MPV Immature Gran % (Auto) Neut % (Auto) Lymph % (Auto) Andrew % (Auto) Eos % (Auto) Baso % (Auto) Neut # (Auto) Lymph # (Auto) Andrew # (Auto) Eos # (Auto) Baso # (Auto) Immature Gran # (Auto) Sodium Potassium Chloride Carbon Dioxide Anion Gap BUN Creatinine Est Cr Clr Drug Dosing eGFR BUN/Creatinine Ratio Glucose POC Glucose 173 H 140 H 156 H Calcium Random Vancomycin 02/25/24 02/25/24 02/25/24 06:03 07:08 11:13 WBC 13.52 H RBC 3.73 L Hgb 11.0 L Hct 33.8 L MCV 90.6 D MCH 29.5 MCHC 32.5 RDW Std Deviation 44.8 RDW Coeff of Carolin 13.3 Plt Count 445 H MPV 9.3 L Immature Gran % (Auto) 0.5 Neut % (Auto) 71.8 Lymph % (Auto) 13.5 Andrew % (Auto) 12.1 Eos % (Auto) 1.6 Baso % (Auto) 0.5 Neut # (Auto) 9.71 H Lymph # (Auto) 1.83 Andrew # (Auto) 1.63 H Eos # (Auto) 0.21 Baso # (Auto) 0.07 Immature Gran # (Auto) 0.07 Sodium 133 L Potassium 3.6 Chloride 98 Carbon Dioxide 28 Anion Gap 7 BUN 21 Creatinine 1.42 H D Est Cr Clr Drug Dosing 56.9 eGFR 52.50 BUN/Creatinine Ratio 14.8 Glucose 125 H POC Glucose 127 H 118 H Calcium 8.2 L Random Vancomycin 02/25/24 02/25/24 02/25/24 11:50 16:25 20:39 WBC RBC Hgb Hct MCV MCH MCHC RDW Std Deviation RDW Coeff of Carolin Plt Count MPV Immature Gran % (Auto) Neut % (Auto) Lymph % (Auto) Andrew % (Auto) Eos % (Auto) Baso % (Auto) Neut # (Auto) Lymph # (Auto) Andrew # (Auto) Eos # (Auto) Baso # (Auto) Immature Gran # (Auto) Sodium Potassium Chloride Carbon Dioxide Anion Gap BUN Creatinine Est Cr Clr Drug Dosing eGFR BUN/Creatinine Ratio Glucose POC Glucose 110 H 154 H Calcium Random Vancomycin 25.5 H* 02/26/24 02/26/24 05:27 07:34 WBC 10.84 H RBC 3.43 L Hgb 10.2 L Hct 30.1 L MCV 87.8 MCH 29.7 MCHC 33.9 RDW Std Deviation 42.9 RDW Coeff of Carolin 13.2 Plt Count 419 H MPV 9.1 L Immature Gran % (Auto) Neut % (Auto) Lymph % (Auto) Andrew % (Auto) Eos % (Auto) Baso % (Auto) Neut # (Auto) Lymph # (Auto) Andrew # (Auto) Eos # (Auto) Baso # (Auto) Immature Gran # (Auto) Sodium 134 L Potassium 3.4 L Chloride 100 Carbon Dioxide 24 Anion Gap 10 BUN 22 Creatinine 1.44 H Est Cr Clr Drug Dosing 56.1 eGFR 51.63 BUN/Creatinine Ratio 15.3 Glucose 114 H POC Glucose 124 H Calcium 8.4 L Random Vancomycin 15.2 Diagnostic Findings Microbiology 02/24/24 08:55 Hip,Left Gram Stain - Final 02/24/24 08:55 Hip,Left Aerobic and Anaerobic Culture - Preliminary No growth to date. 02/24/24 08:33 Hip,Left Gram Stain - Final 02/24/24 08:33 Hip,Left Aerobic and Anaerobic Culture - Preliminary Staphylococcus aureus Staphylococcus epidermidis 02/24/24 08:29 Hip,Left Gram Stain - Final 02/24/24 08:29 Hip,Left Aerobic and Anaerobic Culture - Preliminary No growth to date. 02/24/24 08:23 Hip,Left Gram Stain - Final 02/24/24 08:23 Hip,Left Aerobic and Anaerobic Culture - Preliminary No growth to date. 02/23/24 Unknown Hip,Left Gram Stain - Final 02/23/24 Unknown Hip,Left Aerobic and Anaerobic Culture - Preliminary Staphylococcus aureus 02/23/24 11:56 Blood Aerobic Blood Culture - Preliminary No growth in Aerobic bottle after 48 hours. 02/23/24 11:56 Blood Anaerobic Blood Culture - Preliminary No growth in Anaerobic bottle after 48 hours. 02/23/24 11:15 Blood Aerobic Blood Culture - Preliminary No growth in Aerobic bottle after 48 hours. 02/23/24 11:15 Blood Anaerobic Blood Culture - Preliminary No growth in Anaerobic bottle after 48 hours. Hip X-Ray 02/23/24 11:05 XR hip LT min 2V HISTORY: 73 years-old Male pain/erythema near surgical wound acute pain and swelling of the left thigh with recent surgery COMPARISON: 01/05/2024 TECHNIQUE: 2 views of the left hip FINDINGS: Scrotal surgical clips. Left hip arthroplasty demonstrates satisfactory alignment. No acute fracture, dislocation or osseous erosion. Soft tissue swelling lateral to left hip with small amount of soft tissue gas superolaterally. IMPRESSION: 1. Satisfactory alignment of the left hip arthroplasty without acute osseous abnormality. 2. Soft tissue swelling with small amount of soft tissue gas superior lateral to the left hip. Correlate clinically to exclude infectious etiology. ACT 112: Negative or not required by law. The above report was generated using voice recognition software. It may contain grammatical, syntax or spelling errors. Electronically signed by: Kirby Harmon M.D. 02/23/2024 11:[address] 02/23/24 12:[address] WITH CONTRAST CLINICAL HISTORY: surgical wound inf, eval for underlying abscess COMPARISON STUDY: Left hip radiographs performed earlier today. Left hip radiograph January 05, 2024. TECHNIQUE: Axial images of the left hip were obtained following intravenous administration of 94 cc of Optiray 320 IV. Sagittal and coronal reformats were viewed. FINDINGS: Alignment of the total left hip arthroplasty is anatomic. No periprosthetic fracture or lucency is noted. A few small calcific/ossific densities adjacent to the femoral component of the left hip arthroplasty are present. There is a elongated rim-enhancing gas and fluid containing subincisional left thigh/posterior left hip fluid collection that measures approximately 16 x 11 x 2.3 cm. There is adjacent stranding. Associated skin thickening is also present. Collection includes a subcutaneous component overlying the left gluteus sonal which extends inferiorly along the posterior aspect of the proximal left femur. No additional fluid collections are present. Sigmoid diverticulosis is incidentally noted. IMPRESSION: Status post total left hip arthroplasty. Complex elongated rim- enhancing gas and fluid containing subincisional left thigh/posterior left hip fluid collection which measures approximately 16 x 11 x 2.3 cm , as detailed above. This is consistent with an abscess. Adjacent stranding and skin thickening consistent with associated cellulitis. ACT 112: Negative or not required by law. Electronically signed by: Last Plummer M.D. 02/23/2024 1:37 PM Hip/Pelvis X-Ray 02/24/24 11:04 EXAM: Radiographs of the Left Hip 2 Views INDICATION: Postoperative hip replacement. TECHNIQUE: AP and crosstable lateral views obtained. COMPARISON: No relevant prior studies available. FINDINGS: Limitations: None. Bones/joints: Noncemented hip arthroplasty components well-seated and intact. No fracture or dislocation. Soft tissues: Expected postoperative soft tissue gas and swelling at the operative level. IMPRESSION: Satisfactory appearance of left hip arthroplasty. ACT 112: Negative or not required by law. Electronically signed by Geetha Monteiro 02-24-2024 11:28 AM Medications Administered Home Medications Medication Instructions Recorded Confirmed Last Taken CPAP Supplies #1 ea 06/10/22 12/12/23 Unknown atenolol 25 mg tablet 25 mg PO QAM 12/13/23 02/23/24 02/23/24 levothyroxine 50 mcg tablet 50 mcg PO QAM 12/13/23 02/23/24 02/23/24 losartan 100 mg tablet 100 mg PO QAM 12/13/23 02/23/24 02/23/24 triamcinolone acetonide 0.1 % 1 applic topical BID PRN prn 12/13/23 02/23/24 Unknown topical cream tramadol 50 mg tablet 50 - 100 mg (1 - 2 x 50 mg) PO Q6 01/03/24 02/23/24 Unknown PRN pain #40 tabs hydrochlorothiazide 25 mg tablet 25 mg PO DAILY #90 tabs 01/04/24 02/23/24 02/23/24 atorvastatin 80 mg tablet 80 mg PO QAM #90 tabs 02/12/24 02/23/24 02/23/24 montelukast 10 mg tablet 10 mg PO QAM #90 tabs 02/12/24 02/23/24 02/23/24 (Singulair) cephalexin 500 mg capsule 500 mg PO Q6 14 days #56 caps 02/22/24 02/23/24 02/23/24 acetaminophen 500 mg tablet 1,000 mg PO TID PRN pain 02/23/24 02/23/24 Unknown (Tylenol Extra Strength) sennosides 8.6 mg tablet (Senokot) 8.6 mg PO BID PRN prevent 02/23/24 02/23/24 Unknown constipation Active Medications Generic Name Dose Route Start Last Admin Trade Name Freq PRN Reason Stop Dose Admin Acetaminophen 1,000 mg 02/24/24 12:17 02/25/24 08:33 Acetaminophen 500 Mg Tab PO 03/25/24 12:16 1,000 mg TID PRN Administration pain Ascorbic Acid 500 mg 02/24/24 17:00 02/26/24 07:53 Ascorbic Acid 500 Mg Tab PO 03/25/24 16:59 500 mg BIDM ANG Administration Atenolol 25 mg 02/24/24 09:00 02/26/24 07:53 Atenolol 25 Mg Tablet PO 03/25/24 08:59 25 mg QAM ANG Administration Atorvastatin Calcium 80 mg 02/24/24 09:00 02/26/24 07:53 Atorvastatin 40 Mg Tab PO 03/25/24 08:59 80 mg QAM ANG Administration Docusate Sodium 100 mg 02/24/24 21:00 02/26/24 07:58 Docusate Sodium 100 Mg Cap PO 03/25/24 20:59 100 mg BID ANG Administration Heparin Sodium (Beef Lung) 5 ml 02/25/24 14:03 02/26/24 05:32 Heparin 10 Unit/Ml 5 Ml Flush FLUSH 03/26/24 14:02 5 ml PRN PRN Administration Flush Hydrochlorothiazide 25 mg 02/25/24 09:00 02/26/24 07:53 Hydrochlorothiazide 25 Mg Tab PO 03/26/24 08:59 25 mg DAILY ANG Administration Hydromorphone HCl 0.5 mg 02/24/24 12:17 02/25/24 17:13 Hydromorphone Inj 0.5 Mg/0.5 Ml Syr IV 03/09/24 12:16 0.5 mg Q4H PRN Administration Pain or Pre PT Ceftriaxone Sodium 2,000 mg in 50 mls @ 100 mls/hr 02/25/24 15:00 02/25/24 16:38 Rocephin IV 04/07/24 14:59 Infused Q24H ANG Infusion Vancomycin HCl 1,500 mg/ 530 mls @ 200 mls/hr 02/26/24 09:00 02/26/24 08:57 Sodium Chloride IV 04/06/24 08:59 200 mls/hr Q24H ANG Administration Insulin Aspart 0 units 02/24/24 16:30 02/26/24 07:58 Insulin Aspart Per Unit Charge SC 03/25/24 16:29 6 units ACHS ANG Administration Insulin Glargine 0 units 02/24/24 21:00 02/25/24 21:14 Lantus Per Unit Charge SC 03/25/24 20:59 10 units HS ANG Administration Protocol Levothyroxine Sodium 50 mcg 02/24/24 06:30 02/26/24 05:32 Levothyroxine Sodium 50 Mcg Tablet PO 03/25/24 06:29 50 mcg DAILYBB ANG Administration Losartan Potassium 100 mg 02/25/24 09:00 02/26/24 07:53 Losartan Potassium 50 Mg Tab PO 03/26/24 08:59 100 mg QAM ANG Administration Metoclopramide HCl 10 mg 02/24/24 12:17 02/24/24 13:55 Metoclopramide Hcl Inj 5 Mg/Ml 2 Ml Vial IV 03/25/24 12:16 10 mg Q6H PRN Administration Nausea And Vomiting Montelukast Sodium 10 mg 02/24/24 09:00 02/26/24 07:53 Montelukast Sodium 10 Mg Tablet PO 03/25/24 08:59 10 mg QAM ANG Administration Multivitamins 1 tab 02/25/24 09:00 02/26/24 07:53 Multivitamin Tab PO 03/26/24 08:59 1 tab QAM ANG Administration Ondansetron HCl 4 mg 02/24/24 12:17 02/24/24 21:09 Ondansetron Inj 2 Mg/Ml 2 Ml Vial IV 03/25/24 12:16 4 mg Q6H PRN Administration Nausea And Vomiting Rifampin 300 mg 02/24/24 21:00 02/26/24 07:52 Rifampin 300 Mg Capsule PO 03/25/24 20:59 300 mg BID ANG Administration Sennosides 17.2 mg 02/24/24 21:00 02/25/24 21:15 Senna 8.6 Mg Tab PO 03/25/24 20:59 17.2 mg HS ANG Administration Tramadol HCl 50 - 100 mg 02/24/24 12:17 02/26/24 08:03 Tramadol Hcl 50 Mg Tablet PO 03/25/24 12:16 100 mg Q8H PRN Administration Pain & Pre PT
[2024-02-26] MEDS: ADVANCED PROBIOTIC 625 MG CAPSULE PO SCH (12:09)
[2024-02-26] MEDS: POTASSIUM CHLORIDE CRTAB 20 MEQ TABCR PO STA (17:12)
[2024-02-27 06:40] LABS: Hematocrit (blood only) 28.7 % (42.0-52.0); Hemoglobin 9.7 g/dl (14.0-18.0); Mean Corpuscular Hemoglobin 29.5 pg (25.0-34.0); Mean Corpuscular Hgb Conc 33.8 g/dL (32.0-36.0); Mean Corpuscular Volume 87.2 fL (80.0-100.0); Mean Platelet Volume 9.3 fL (9.4-12.4); Platelet Count 401 K/uL (130-400); RDW Coefficient of Variation 13.1 % (11.5-14.5); Red Blood Count 3.29 M/uL (4.70-6.10); White Blood Count 8.45 K/ul (4.8-10.8)
[2024-02-27 06:56] LABS: BUN Creatinine Ratio 17.6 (10-20); Calcium 8.8 mg/dl (8.6-10.3); Creatinine Clr Calc Pharmacy 74.9 ml/min; Potassium 3.1 mmol/L (3.5-5.1)
[2024-02-27 07:29] VITALS: BP 145/80; RESP 18; TEMP 98.1; O2SAT 99
--- NOTE | 2024-02-27 07:48 | Orthopedic Progress Note ---
Date of Service February 27, 2024 Assessment & Plan (1) Infection of left prosthetic hip joint: Plan: 73-year-old gentleman now 3 days out from I&D and polyethylene femoral head exchange for infected total hip replacement doing pretty well. Creatinine is improved. Prevena VAC dressing is been a bit of an issue which were trying to sort out. Plan: 1. DVT prophylaxis including Thiede teds, SCDs, aspirin twice a day. 2. PT/OT. He can fully weight-bear as tolerated. Does [employer] hip precautions. 3. IV antibiotics. Plan to 6 weeks of IV antibiotics along with p.o. rifampin. Awaiting final sensitivities. Hopefully we can convert him to Ancef today and may be discharged if can be arranged. 4. Continue wound care with Prevena VAC dressing. We may need to get him some canisters to take at home. 5. Disposition. Hopeful for discharge maybe today if we can get above the range. That we will see what the cultures show, ID recommendations, and wound care issues (2) Left hip postoperative wound infection: (3) ZAYRA (acute kidney injury): Admission and Anticipated Discharge Date Admission Date: February 23, 2024 Subjective 73-year-old gentleman now postop day 3 from I&D and polyethylene femoral head exchange. Clinically is doing pretty well. Having some issues with the Prevena VAC dressing. Pains been controlled. He is hoping to go home soon. Physical Exam Physical Exam: Physical examination was a pleasant middle-aged male. He is all walk around his room looks pretty comfortable this morning. Examination left hip reveals the dressing to be clean dry and in place. There is continues to be some mild bloody drainage. Thigh is soft and supple. Hips located. He is neurologically intact. Results & Data Vital Signs (Past 12 Hours) Vital Signs Temp Pulse Resp BP BP Pulse Ox O2 Del Method 02/27/24 07:24 36.7 C 69 18 145/80 H 99 Room Air 02/26/24 21:09 36.9 C 64 16 123/69 97 Room Air Laboratory Results Hemoglobin is 9.7. Hematocrit is 28.7. Creatinine is improved at 1.08. Potassium is a little bit low at 3.1.
[2024-02-27] MEDS: POTASSIUM CHLORIDE CRTAB 20 MEQ TABCR PO ONE ×2 (08:21→13:09)
--- NOTE | 2024-02-27 08:38 | Hospitalist Progress Note ---
Date of Service February 27, 2024 Assessment & Plan (1) Left hip postoperative wound infection: Plan: S/p I&D and polyethylene femoral head exchange for a periprosthetic joint infection 02/24/[address] Banks - Defer DVT prophylaxis, pain regimen, bowel regimen, activity level, dispo planning to primary ortho team - Review of operative report less EBL 200 cc, no complications noted - Acute blood loss anemia secondary to surgery. Hgb stable, no indication for blood transfusion at this time. Transfuse PRN for symptomatic anemia or Hgb <7 - Blood cultures negative > 48 hours - Intraoperative cultures preliminarily growing Staph aureus and staph epi, sensitivities pending - ID consulted to assist in antibiotic regimen; PICC line placed as patient will need at least 6 weeks of IV antibiotics - Patient is medically stable for discharge from hospital medicine's perspective; we will sign off at this time. Please reach out with any questions or concerns. (2) ZAYRA (acute kidney injury): Plan: Baseline creatinine around 1.0, with temporary increase, now resolved - Losartan and HCTZ RESUMED - Continue Rifampin - Encourage PO hydration (3) Hypertension: Plan: Blood pressure stable - Continue atenolol, losartan, hydrochlorothiazide (4) Diabetes mellitus, type II: Plan: On semaglutide outpatient; hold while inpatient - Pharmacy glycemic consult is placed - Intolerant to metformin because of GI adverse effects. Intolerant of Jardiance because of memory issues while taking it - SSI while inpatient, goal BSG [id number], glucose checks ACHS Plan Repleted potassium Resumed losartan, HCTZ Chronic stable problems: Hypothyroidism: Continue levothyroxine Hypercholesterolemia: Continue atorvastatin JULIENNE: Continue CPAP at bedtime VTE PPx: thigh-high teds, SCDs, aspirin twice a day for 6 weeks CODE STATUS: Full code Patient is medically stable for discharge from hospital medicine's perspective; we will sign off at this time. Please reach out with any questions or concerns. Admission and Anticipated Discharge Date Admission Date: February 23, 2024 Supervising Physician Co-Signing Physician Notes The patient was not seen by me. The chart was reviewed. Case discussed with XAVIER French. Agree with assessment and plan Subjective Patient seen and evaluated at bedside. He reports feeling tired due to not sleeping well last night because of issues with his wound vac. No further issues with the wound vac since being replaced with new unit. Patient reports feeling well otherwise and is eager to go home. He denies chest pain, shortness of breath, abdominal pain, nausea, headache, or dizziness. We discussed that his ZAYRA resolved and his anti-hypertensives have been resumed. He is stable for discharge from hospital medicine's perspective. Physical Exam Physical Exam: General: No acute distress, nondiaphoretic, well-developed, well-nourished. Cardiac: Regular rate and rhythm without murmurs gallops or rubs. Pulm: Clear to auscultation bilaterally without wheezes, rales or rhonchi. No respiratory distress. 99% on room air. Abdominal: Soft, nontender, nondistended. Bowel sounds present. Neuro: A&O x3. No focal neurological deficits. Extremities: Left hip Prevena VAC dressing in place. Neurologically intact. No edema noted. Results & Data Results & Data Vital Signs (Past 12 Hours) Vital Signs Temp Pulse Resp BP BP Pulse Ox O2 Del Method 02/27/24 07:24 98.1 F 69 18 145/80 H 99 Room Air 02/26/24 21:09 98.4 F 64 16 123/69 97 Room Air Laboratory Results Reviewed CBC Reviewed BMP Reviewed cultures PG Care Time/CCT Total # of Minutes Spent Total Time Spent with Patient: Total time spent is greater than 50% in coordination of care (as documented) at patient's floor/unit and/or counseling patient: Coding Level of Care Code 15747 SUB INP/OBS CARE 2/35MIN Diagnoses Left hip postoperative wound infection T81.49XA ZAYRA (acute kidney injury) N17.9 Hypertension I10 Diabetes mellitus, type II E11.9
[2024-02-27] MEDS: POTASSIUM CHLORIDE CRTAB 20 MEQ TABCR PO STA (08:52)
--- NOTE | 2024-02-27 09:55 | Pharmacy Report ---
Pharmacy Glycemic Short Note 2 - Date of Service February 27, 2024 - Glycemic Short BSG Results (Last 24 hours): 02/26/24 02/26/24 02/26/24 11:44 16:43 20:28 Glucose POC Glucose 100 H 138 H 115 H 02/27/24 02/27/24 05:57 07:27 Glucose 101 H POC Glucose 115 H OUTPATIENT ANTIDIABETIC REGIMEN: * Semaglutide * A1c = 7.3% ASSESSMENT: 02/26 * Patient received 12 units of insulin yesterday, all were bolus. * Fasting BSG was in the goal range this morning but BSGs have been on the lower end so will decrease HS Lantus scale to 0 or 5 units * BSG continuing to trend down at lunch so loosened the CHO ratio again yesterday. * POD #2 and patient continues on vancomycin and rifampin. 02/24 * Stephane is a 73 yo with h/o T2DM admitted with suspected L hip post-operative infection s/p I&D and polyethylene femoral head exchange on 02/24/24. * Patient was initiated on conservative doses of basal + bolus insulin post surgery. BSG consistently at/near goal range. * Fasting BSG of 127 mg/dL this morning. Will continue Lantus dose per scale. * Will slightly loosen Novolog carb coverage based BSG trending down at lunchtime. PLAN FOR INPATIENT GLYCEMIC CONTROL: * Hold outpatient oral diabetes medications * Basal insulin * Lantus 0-5 units SQ HS (5 units for BSG 150 mg/dL or more) * Bolus insulin * NovoLog per scale ACHS or Q6hrs while NPO * Goal Range: Low 110 mg/dL - High 140 mg/dL * Correction Factor: 25 mg/dL/unit * Nutritional / Prandial insulin per carb ratio of 1 unit per 11 grams CHO consumed
--- NOTE | 2024-02-27 10:42 | Infectious Disease Progress Nt ---
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 Immediately after the procedure he did well and was working with physical therapy . About 3 weeks ago af , he noted some increased drainage from the incision and pain increasing pain with ambulation. He then d eveloped some erythema at the incision site . He was evaluated by orthopedics and completed a course of Keflex with some improvement but continued erythema around the incision induration around the distal aspects of the incision. He also complained of chills with sweats but no fevers. On 02/21,he was reevaluated by orthopedics and continued to have erythema and induration at the incision site. He was asked to get lab work and was prescribed another course of Keflex. He was subsequently referred to the ED on 02/23/24 for further evaluation and management. In the ED, he was afebrile, pulse 66, blood pressure 156/84, 96% on room air. Labs: WBC 9.69--> 13.52, platelets 513, BUN 17, creatinine 0.97 CRP 9.94. Left hip x-ray shows satisfactory alignment of the left hip arthroplasty without acute osseous abnormality; soft tissue swelling and small amount of soft tissue gas superior lateral to the left hip. A Left hip CAT scan demonstrated complex elongated rim-enhancing gas and fluid containing subincisional left thigh/posterior left hip fluid collection approximately 16 x 11 x 2.3 cm consistent with abscess. There is adjacent stranding and skin thickening consistent with cellulitis. On 02/24/24, he underwent left hip incision and drainage with poly exchange and femoral head exchange with orthopedics (Dr. Banks). Per op report, he had extensive infection throughout the entire hip joint with a small area of dehiscence of the IT band repair. The implant components were well-fixed without any signs of loosening or instability. Four intraop cultures were obtained. 2 fluid cultures from the hip joint, 1 tissue culture and 1 fluid culture from deep within the hip joint. Intraoperative cultures growing rare Staph aureus and staph epi so far pending susceptibilities. He is receiving vancomycin, ceftriaxone and oral rifampin. Infectious disease consulted for hip abscess. On my initial exam he is In no acute distress. A PICC line is in place. He has decreased pain at the hip site since surgery. Microbiology -Blood culture 02/22 NGTD -Wound culture ( non OR) 02/22 MSSA (prelim ) -OR culture (left hip #1) 02/23 NGTD -OR culture (left hip #2) 02/23 NGTD -OR culture (left hip tissue) 02/23 rare GPC on Gram stain: MSSA and staph epi S oxa ( prelim) Aero/Samira Cult Preliminary 02/27/24-1150 Organism 1 Staphylococcus aureus Quantity Rare Sens Sensitivities to Follow Organism 2 Staphylococcus epidermidis Quantity Rare Sens Sensitivities to Follow S aureus S epidermi RX M.I.C. RX M.I.C. --- --------- --- --------- Clindamycin R <=0.25 S <=0.25 Daptomycin S <=0.5 S <=0.5 Erythromycin R >4 R >4 Linezolid S 2 S 2 Oxacillin S <=0.25 S <=0.25 Tetracycline S <=4 S <=4 Trimeth/Sulfa S <=0.5/9.5 S <=0.5/9.5 Vancomycin S 1 S 1 -OR culture (deep hip) 02/23 NGTD Antibiotics Ceftriaxone Vancomycin Rifampin 02/23ongoing Cefazolin 02/26- ongoing # Left hip PJI # Left hip abscess and cellulitis # Leukocytosis, resolved # TMP/Sulfa and Clindamycin allergy. Discussion: He presents with PJI of the left hip. He is status post washout and poly exchange. Hardware remains. Intraoperative cultures so far growing Staph aureus and staph epi pending sensitivity. Leukocytosis improving. Recommendations: Discontinued vancomycin and started cefazolin 2 g IV every 8 hours as non OR + OR cx + MSSA staph epi Oxa S so far Continue rifampin 300 mg p.o. twice daily as adjunctive therapy in setting of MSSA/? staph epi PJI. Monitor for DDI. There are many drug - drug interaction 2/2 inhibition and induction of several hepatic enzymes and rifampin can increase or decrease the concentration of many concomitant drugs. Also expect red orang discoloration in CSF , tears , sweat, urine, feces.. Follow up OR cultures ( 02/23) to finalization to ensure no additional organisms growing. Follow-up blood cultures and non OR wound cx from 02/22 Anticipate 6 Weeks of IV antibiotics ( cefazolin) and rifampin p.o. from OR date( 02/24/24- 04/06/24) followed by oral antibiotic suppression starting 04/07/24- for 3-6 mos or more for MSSA / ? Staph epi PJI; oral suppression abx options include cefadroxil 500 mg po bid + rifampin 300 mg po bid . These recommendation are based on available micro results. If other organisms grow, then antibiotics will need to be appropriately adjusted. . On antibiotic therapy will need weekly CBC with differential, CMP, ESR, CRP. Establish care with local ID for continued management rehana on Rifampin . ID will stop actively following . Please call if any questions or if new organism grow in OR culture or Blood culure positive. Rowena Muñoz MD, MPH Infectious Disease [facility] Call [phone] with questions Admission and Anticipated Discharge Date Admission Date: February 23, 2024 Subjective This patient recommendation is based on a telemedicine consult request which was completed asynchronously through chart review and information provided by the primary physician. The patient was not seen or examined today. The evaluation is consultative in nature and all patient care and treatment decisions can either be accepted or rejected by the patient's primary hospital-based treating physician using their own independent medical judgment for their patient. Time Spent Reviewing Chart: 31+ minutes Intraop culture MSSA and oxa S staph epi NON OR cx finalized as MSSA Results & Data Vital Signs (Past 12 Hours) Vital Signs Temp Pulse Resp BP Pulse Ox O2 Del Method 02/27/24 07:24 36.7 C 69 18 145/80 H 99 Room Air Laboratory Results Short CBC 02/27/24 Range/Units 05:57 WBC 8.45 (4.8-10.8) K/ul Hgb 9.7 L (14.0-18.0) g/dl Hct 28.7 L (42.0-52.0) % Plt Count 401 H (130-400) K/uL BMP 02/27/24 05:57 Sodium 137 Potassium 3.1 L Chloride 102 Carbon Dioxide 29 BUN 19 Creatinine 1.08 D Glucose 101 H Calcium 8.8 Diagnostic Findings Microbiology 02/24/24 08:33 Hip,Left Gram Stain - Final 02/24/24 08:33 Hip,Left Aerobic and Anaerobic Culture - Preliminary Staphylococcus aureus Staphylococcus epidermidis 02/23/24 Unknown Hip,Left Gram Stain - Final 02/23/24 Unknown Hip,Left Aerobic and Anaerobic Culture - Preliminary Staphylococcus aureus 02/24/24 08:55 Hip,Left Gram Stain - Final 02/24/24 08:55 Hip,Left Aerobic and Anaerobic Culture - Preliminary No growth to date. 02/24/24 08:29 Hip,Left Gram Stain - Final 02/24/24 08:29 Hip,Left Aerobic and Anaerobic Culture - Preliminary No growth to date. 02/24/24 08:23 Hip,Left Gram Stain - Final 02/24/24 08:23 Hip,Left Aerobic and Anaerobic Culture - Preliminary No growth to date. 02/23/24 11:56 Blood Aerobic Blood Culture - Preliminary No growth in Aerobic bottle after 48 hours. 02/23/24 11:56 Blood Anaerobic Blood Culture - Preliminary No growth in Anaerobic bottle after 48 hours. 02/23/24 11:15 Blood Aerobic Blood Culture - Preliminary No growth in Aerobic bottle after 48 hours. 02/23/24 11:15 Blood Anaerobic Blood Culture - Preliminary No growth in Anaerobic bottle after 48 hours. Hip/Pelvis X-Ray 02/24/24 11:04 EXAM: Radiographs of the Left Hip 2 Views INDICATION: Postoperative hip replacement. TECHNIQUE: AP and crosstable lateral views obtained. COMPARISON: No relevant prior studies available. FINDINGS: Limitations: None. Bones/joints: Noncemented hip arthroplasty components well-seated and intact. No fracture or dislocation. Soft tissues: Expected postoperative soft tissue gas and swelling at the operative level. IMPRESSION: Satisfactory appearance of left hip arthroplasty. ACT 112: Negative or not required by law. Electronically signed by Geetha Monteiro 02-24-2024 11:28 AM Medications Administered Home Medications Medication Instructions Recorded Confirmed Last Taken CPAP Supplies #1 ea 06/10/22 12/12/23 Unknown atenolol 25 mg tablet 25 mg PO QAM 12/13/23 02/23/24 02/23/24 levothyroxine 50 mcg tablet 50 mcg PO QAM 12/13/23 02/23/24 02/23/24 losartan 100 mg tablet 100 mg PO QAM 12/13/23 02/23/24 02/23/24 triamcinolone acetonide 0.1 % 1 applic topical BID PRN prn 12/13/23 02/23/24 Unknown topical cream tramadol 50 mg tablet 50 - 100 mg (1 - 2 x 50 mg) PO Q6 01/03/24 02/23/24 Unknown PRN pain #40 tabs hydrochlorothiazide 25 mg tablet 25 mg PO DAILY #90 tabs 01/04/24 02/23/24 02/23/24 atorvastatin 80 mg tablet 80 mg PO QAM #90 tabs 02/12/24 02/23/24 02/23/24 montelukast 10 mg tablet 10 mg PO QAM #90 tabs 02/12/24 02/23/24 02/23/24 (Singulair) cephalexin 500 mg capsule 500 mg PO Q6 14 days #56 caps 02/22/24 02/23/24 02/23/24 acetaminophen 500 mg tablet 1,000 mg PO TID PRN pain 02/23/24 02/23/24 Unknown (Tylenol Extra Strength) sennosides 8.6 mg tablet (Senokot) 8.6 mg PO BID PRN prevent 02/23/24 02/23/24 Unknown constipation Active Medications Generic Name Dose Route Start Last Admin Trade Name Freq PRN Reason Stop Dose Admin Acetaminophen 1,000 mg 02/24/24 12:17 02/26/24 21:07 Acetaminophen 500 Mg Tab PO 03/25/24 12:16 1,000 mg TID PRN Administration pain Ascorbic Acid 500 mg 02/24/24 17:00 02/27/24 08:22 Ascorbic Acid 500 Mg Tab PO 03/25/24 16:59 500 mg BIDM ANG Administration Atenolol 25 mg 02/24/24 09:00 02/27/24 08:22 Atenolol 25 Mg Tablet PO 03/25/24 08:59 25 mg QAM ANG Administration Atorvastatin Calcium 80 mg 02/24/24 09:00 02/27/24 08:22 Atorvastatin 40 Mg Tab PO 03/25/24 08:59 80 mg QAM ANG Administration Docusate Sodium 100 mg 02/24/24 21:00 02/27/24 08:22 Docusate Sodium 100 Mg Cap PO 03/25/24 20:59 Not Given BID ANG Heparin Sodium (Beef Lung) 5 ml 02/25/24 14:03 02/27/24 06:01 Heparin 10 Unit/Ml 5 Ml Flush FLUSH 03/26/24 14:02 5 ml PRN PRN Administration Flush Hydrochlorothiazide 25 mg 02/25/24 09:00 02/26/24 07:53 Hydrochlorothiazide 25 Mg Tab PO 03/26/24 08:59 25 mg DAILY ANG Administration Hydromorphone HCl 0.5 mg 02/24/24 12:17 02/25/24 17:13 Hydromorphone Inj 0.5 Mg/0.5 Ml Syr IV 03/09/24 12:16 0.5 mg Q4H PRN Administration Pain or Pre PT Vancomycin HCl 1,500 mg/ 530 mls @ 200 mls/hr 02/26/24 09:00 02/27/24 08:21 Sodium Chloride IV 04/06/24 08:59 200 mls/hr Q24H ANG Administration Insulin Aspart 0 units 02/24/24 16:30 02/27/24 08:21 Insulin Aspart Per Unit Charge SC 03/25/24 16:29 2 units ACHS ANG Administration Insulin Glargine 0 units 02/24/24 21:00 02/26/24 20:54 Lantus Per Unit Charge SC 03/25/24 20:59 Not Given HS ANG Protocol Lactobacillus Acidophilus 1,250 mg 02/26/24 11:45 02/27/24 08:22 Advanced Probiotic 625 Mg Capsule PO 03/27/24 11:44 1,250 mg DAILY ANG Administration Levothyroxine Sodium 50 mcg 02/24/24 06:30 02/27/24 06:01 Levothyroxine Sodium 50 Mcg Tablet PO 03/25/24 06:29 50 mcg DAILYBB ANG Administration Losartan Potassium 100 mg 02/25/24 09:00 02/26/24 07:53 Losartan Potassium 50 Mg Tab PO 03/26/24 08:59 100 mg QAM ANG Administration Metoclopramide HCl 10 mg 02/24/24 12:17 02/24/24 13:55 Metoclopramide Hcl Inj 5 Mg/Ml 2 Ml Vial IV 03/25/24 12:16 10 mg Q6H PRN Administration Nausea And Vomiting Montelukast Sodium 10 mg 02/24/24 09:00 02/27/24 08:22 Montelukast Sodium 10 Mg Tablet PO 03/25/24 08:59 10 mg QAM ANG Administration Multivitamins 1 tab 02/25/24 09:00 02/27/24 08:22 Multivitamin Tab PO 03/26/24 08:59 1 tab QAM ANG Administration Ondansetron HCl 4 mg 02/24/24 12:17 02/24/24 21:09 Ondansetron Inj 2 Mg/Ml 2 Ml Vial IV 03/25/24 12:16 4 mg Q6H PRN Administration Nausea And Vomiting Rifampin 300 mg 02/24/24 21:00 02/27/24 08:22 Rifampin 300 Mg Capsule PO 03/25/24 20:59 300 mg BID ANG Administration Sennosides 17.2 mg 02/24/24 21:00 02/26/24 19:24 Senna 8.6 Mg Tab PO 03/25/24 20:59 Not Given HS [facility] Tramadol HCl 50 - 100 mg 02/24/24 12:17 02/26/24 22:03 Tramadol Hcl 50 Mg Tablet PO 03/25/24 12:16 100 mg Q8H PRN Administration Pain & Pre PT
[2024-02-27] MEDS: ceFAZolin 2000MG 2,000 MG/15 ML SYR IV SCH (12:05)
[2024-02-27 13:46] VITALS: PULSE 68
== END 2024-02-27 15:04 | disposition home health service (06) | DRG 467 ==
LOC: ED 10:10 → 3E 13:46